=== PATIENT | female | born 1980 | race Caucasian/White ===

== ENCOUNTER 2021-03-03 16:17 | Outpatient (CLI) | payer OTHER, SELFPAY ==
--- NOTE | ~2021-03-03 | XR_ITS ---
EXAMINATION: XR chest 2V 03/03/2021 16:44 INDICATION: Shortness of breath PROCEDURE: 2 view chest COMPARISON: No prior studies for comparison. FINDINGS: The lungs are clear. The cardiomediastinal silhouette is within normal limits. There are no pleural effusions. There is no pneumothorax suspected. IMPRESSION: 1: NO ACUTE CARDIOPULMONARY DISEASE. Reviewed, dictated and finalized at location A.
== END 2021-03-03 16:18 | disposition home or self-care (01) ==
LOC: ANHIMG 16:23
PROVIDERS: PCP Emergency Medicine; Visit Provider Emergency Medicine
DX: R06.02 Shortness of breath (principal)
CPT/HCPCS: 71046

== ENCOUNTER 2021-03-05 05:55 | Emergency (ER) | payer OTHER, SELFPAY ==
--- NOTE | 2021-03-05 06:09 | ED.ABDPAIN ---
HPI - Abdominal Pain General Chief Complaint: Abdominal Pain Stated Complaint: abdominal pain Time Seen by Provider: 03/05/21 05:58 History of Present Illness HPI narrative: Patient is a 41-year-old female who presents ER with abdominal pain. Ongoing for 8 days. Sporadic in location. Intermittent in nature. Sharp when it does occur. No aggravating or alleviating factors. It is not associated with eating or drinking. There is no nausea or vomiting or diarrhea. She saw her primary care physician Dr. Byrnes. He has encouraged her several times come to the ER to be evaluated as he is unsure if she can get a CT scan outpatient due to her insurance and she is having persistent pain. Patient opted to come to the ER today in hopes that there would not be people around. Related Data Allergies Allergy/AdvReac Type Severity Reaction Status Date / Time Penicillins Allergy Mild Unverified 10/15/16 20:53 azithromycin Allergy Unknown Verified 10/15/16 20:53 Review of Systems Review of Systems: All systems reviewed & are unremarkable except as noted in HPI and below Constitutional: Constitutional: Denies chills, Denies fever(s) and Denies weakness Cardiovascular: Cardiovascular: Denies chest pain, Denies rapid heart rate and Denies radiating jaw, neck or arm pain Respiratory: Respiratory: Denies cough and Denies dyspnea Gastrointestinal: Gastrointestinal: Reports abdominal pain, Denies bloating, Denies constipation, Denies diarrhea, Denies nausea and Denies vomiting Genitourinary: Genitourinary: Denies hematuria, Denies nocturia, Denies dysuria and Denies flank pain Musculoskeletal: Musculoskeletal: Denies back pain and Denies muscle cramps PMFSH Past Medical History Medical History (Updated 03/05/21 @ 06:15 by Frankie Suarez MD) Anxiety Kidney stones Polycystic ovarian syndrome Surgical History Surgical History (Updated 03/05/21 @ 06:15 by Frankie Suarez MD) No pertinent past surgical history Social History Social History (Updated 03/05/21 @ 06:15 by Frankie Suarez MD) Smoking status: Never smoker Exam Narrative: GENERAL: Well-appearing, well-nourished, and in no acute distress. HEAD: Normocephalic, atraumatic. EYES: PERRL and EOMI. CHEST: Clear to auscultation. No respiratory distress. HEART: Regular rate and rhythm. Normal peripheral pulses. ABDOMEN: Soft, nontender, nondistended. EXTREMITIES: Normal range of motion. No edema. SKIN: Warm, dry, no rash. NEURO: Alert and oriented x3. PSYCH: Patient became very anxious about the possibility that another person could possibly share a room with her while in the ED. She became tearful. Course Course Emergency Course: Patient decided she did not want to be evaluated and walked out of the ER without signing AMA paperwork. Discharge Plan Discharge Clinical Impression: Generalized abdominal pain Patient Disposition: Left Against Medical Advice Condition: Guarded Prognosis Follow-up/Referrals: Lito Byrnes MD [Primary Care Provider] -
--- NOTE | 2021-03-05 06:17 | PC.NURSE ---
Pt ambulates out of ED without seeing provider. Gait is steady, no sign of distress of any kind.
== END 2021-03-05 06:17 | disposition left against medical advice (07) ==
PROVIDERS: Emergency Provider Emergency Medicine; PCP Emergency Medicine
DX: R10.84 Generalized abdominal pain (principal); Z87.442 Personal history of urinary calculi; E28.2 Polycystic ovarian syndrome
CPT/HCPCS: 99281

== ENCOUNTER 2025-01-01 07:31 | Outpatient (NON) | payer OTHER, SELFPAY ==
--- NOTE | 2025-01-01 | S_PTH ---
PATIENT: Bindu Rolon LOC: [facility] U#:[id number] AGE/SX: 44/F ROOM: RE01/01/[address]: Wes Rogers MD : 1980 BED: DIS: 01/01/2025 SPEC #: [id number] RECD: 01/02/25 07:43 STATUS: DEACON REQ #: [id number] ERASTO: 01/01/25 00:[address]: Wes Rogers DEPT: [facility] Surgical RECD BY: Lexy Menendez ENTERED: 01/02/25 07:44 SP TYPE: Surgical OTHR DR: UNKNOWN,DOCTOR Tissues: A - Breast Capsule Procedures: Hematoxylin and Eosin Stain Gross and Microscopic Level 3
--- OUTSIDE RECORDS SUMMARY | 2025-01-02 07:35 | XMS_ITS | Encounter Summary ---
Author Organization [facility] Address [address] [place] [address] Care Team Providers Care Global Engineering Manager Name Role Phone Carola Ashley MILLER FIRST-CHILD SUPPORT CASE OFFICER Unavailable [phone] Yolie Jauregui MILLER FIRST-CHILD SUPPORT CASE OFFICER Primary Care Provider Encounter Details Date Type Department Care Team (Late st Contact Info) Description 11/25/2024 Results Follow-Up [facility] - Family Medicine [address] [place] [phone] Yolie Jauregui MILLER FIRST-CHILD SUPPORT CASE OFFICER [address] [place] [phone] Social History Tobacco Use Types Packs/Day [...] on filedocumented in this encounter Care Teams Global Engineering Manager Relationship Specialty Start Date End Date Yolie Jauregui MILLER FIRST-RAMESH [address] [place] [phone] PCP - General Nurse Practitioner 11/06/24 Carola Ashley APRN-CHILD SUPPORT CASE OFFICER [address] [phone] Nurse Practitioner Nurse Practitioner 06/19/24 documented as of this encounter
--- OUTSIDE RECORDS SUMMARY | 2025-01-02 07:35 | XMS_ITS | Continuity of Care Document ---
Author Organization [facility] Address [address] [place] [address] Phone Care Team Providers Care Serology Technician Name Role Phone Burton Marino MD Unavailable Unavailable Allergies, Adverse Reactions, Alerts Substance Reaction Status Criticality azithromycin Active No Information Penicillins Unknown Active No Information Medications Medication Instructions Dosage Effective Dates (start - stop) Status Comments triamcinolone acetonide 0.5 % topical cream apply by topical route 2 times every day a thin layer to the affected area(s) 0.00 - Active do not use more than 2 weeks metronidazole 0.75 % topical gel apply by topical route 2 times every day a thin layer to the affected area(s) in the morning and evening 0.00 - Active Procedures Procedure Date PREV VISIT, NEW, AGE 18-39 OFFICE/OUTPATIENT VISIT, [facility] Advance Directives Directive Yes / No Effective Date File Name No Information Encounters Encounter Description Practice Location Reason(s) For Visit Diagnoses Date Provider Providers Copied on Encounter PREV VISIT, NEW, AGE 18-39 [facility], [facility] [place], [id number], tel:[phone] [facility] Physical (chief complaint) Polycystic ovarian syndromeRashEncount er for general adult medical exam w abnormal findings Ned Manrique. [address] [place], [place], [id number] , [place]. tel:[phone] Family History Family Member Type Diagnosis Age At Onset Father Problem (finding) Alive and well Mother Problem (finding) Thyroid disorder Sister Problem (finding) Alive and well Payers Payer name Insurance type Covered democrat ID Authoriza tion(s) No Information Social History [...] Mental Status Date Cognitive Assessment Orientation - Kimball ed to time, place, person, situation.
--- OUTSIDE RECORDS SUMMARY | 2025-01-02 07:36 | XMS_ITS | Clinical Summary ---
Author Organization [facility] Address [address] [place] [address] Care Team Providers Care Surveyor Helper Name Role Phone Ally Magana FELI Primary Care Provider [phone] Allergies Active Allergy Reactions Criticality Noted Date [...] VE NON-REACTI VE 11/26/2021 3:54 PM CDT [facility] 11/26/2021 12:0 5 PM CDT Ally Magana NP LABORATORY Final Result [facility] [address] [place] [address], from Last 3 Months or Most Recently Relevant to Health Maintenance Insurance [employer] Care Teams Surveyor Helper Relationship Specialty Start Date End Date [place] [address] PCP - General NURSE PRACTITIONER 11/24/21
--- OUTSIDE RECORDS SUMMARY | 2025-01-02 07:36 | XMS_ITS | Encounter Summary ---
Author Organization [facility] Address [address] [place] [address] Care Team Providers Care Marketing Teacher Name Role Phone Carola Ashley RN HOSPICE-FOREIGN LANGUAGE PROFESSOR Unavailable [phone] Yolie Jauregui RN HOSPICE-FOREIGN LANGUAGE PROFESSOR Primary Care Provider Encounter Details Date Type Department Care Team (Late st Contact Info) Description 11/25/2024 Results Follow-Up [facility] - Family Medicine [address] [place] [phone] Yolie Jauregui RN HOSPICE-FOREIGN LANGUAGE PROFESSOR [address] [place] [phone] Social History Tobacco Use Types Packs/Day [...] on filedocumented in this encounter Care Teams Marketing Teacher Relationship Specialty Start Date End Date Yolie Jauregui RN HOSPICE-RAMESH [address] [place] [phone] PCP - General Nurse Practitioner 11/06/24 Carola Ashley APRN-FOREIGN LANGUAGE PROFESSOR [address] [phone] Nurse Practitioner Nurse Practitioner 06/19/24 documented as of this encounter
--- OUTSIDE RECORDS SUMMARY | 2025-01-02 07:36 | XMS_ITS | Clinical Summary ---
Author Organization [facility] Address [address] [place] [id number] Care Team Providers Care Pet Sitting Name Role Phone Allison Hwang PA-C Primary Care Provider [phone] Allergies Active Allergy Reactions Criticality Noted Date Comments Azithromycin Hives,Itching,Nausea Only,Other/Unknown (See Comments),Palpitations Low 03/05/2021 azithromycin Iodinated Diagnostic Agents Anaphylaxis,Anxiety,Hea dache,Nausea And Vomiting,Palpitations,S hortness Of Breath 09/04/2024 Iodine Anaphylaxis High 10/11/2021 Penicillins Hives,Itching,Rash Medium 01/08/2020 Shellfish-Derived Products Anaphylaxis,Other/Unkno wn (See Comments),Hives,Itching ,Palpitations,Rash,Alyce oedema High 03/05/2021 Medications Vitamin D, Ergocalciferol, [address] UNIT capsule Take 1 capsule (50,000 Units) [...] drink = 0.6 oz pur e alcohol) [facility] Utilities Answer Date Recorded In the past 12 months has th e electric, gas, oil, or water company threatened to shut off services in your home? No 09/03/2024 PHQ-2 Answer Date Recorded Patient Health Questionnaire-2 Score 0 09/04/2024 Housing Stability Vital Sign Answer Ted e Recorded In the last 12 months, was t here a time when you were not able to pay the mortgage or rent on time? No 09/03/2024 In the past 12 months, how m any times have you moved where you were living? 0 09/03/2024 At any time in the past 12 m [facility], were you homeless or living in a skilled nursing (including now)? No 09/03/2024 Alcohol Use Answer [...] topic MENINGOCOCCAL VACCINE Aged Out No celina gooy eligible based on patient's age to complete [...] patient's age to complete this topic Insurance [facility] Care Teams Pet Sitting Relationship Specialty Start Date End Date Allison Hwang PA-C [address] [place] [address] PCP - General Physician Art Gallery Director 08/30/24
--- OUTSIDE RECORDS SUMMARY | 2025-01-02 07:36 | XMS_ITS | Clinical Summary ---
Author Organization [facility] Address [address] [place] [address] Care Team Providers Care Outbound Call Center Representative Name Role Phone Carola Ashley [employer] ADMINISTRATOR-[employer] MACHINE OPERATOR Unavailable [phone] Yolie Jauregui [employer] ADMINISTRATOR-[employer]SEMBL[employer] MACHINE OPERATOR Primary Care Provider Source Comments [facility] Affiliates and Associated Physician Practices is amultiple site organization consisting of ambulatory clinics and hospital sitesin [place], [place], [place] and [place]. This disclosure is being madepursuant to the Care Everywhere program and may not contain all information available regarding this patient. Last updated 18.[facility] Yazino Allergies Active Allergy Reactions Criticality Noted Date [...] Type Department Care Team Description 12/22/[address] [phone] Yolie Jauregui, [employer] ADMINISTRATOR-[employer] ASSEMBL[employer] MACHINE OPERATOR Refill Request 11/28/2024 Orders Only [address] [phone] Yolie Jauregui [employer] ADMINISTRATOR-RAMESH 11/28/[address] [phone] Allison Hwang PA-C Refill Request 11/25/2024 Results Follow-Up [address] [address] Yolie Jauregui [employer] ADMINISTRATOR-[employer] ASSEMBL[employer] MACHINE OPERATOR 11/25/2024 Results Follow-Up [address] [phone] Yolie Jauregui [employer] ADMINISTRATOR-[employer] ASSEMBLY MACHINE OPERATOR 11/22/2024 11:30 AM CDT Office Visit [address] [phone] Yolie Jauregui, [employer] ADMINISTRATOR-[employer]SEMBL[employer] MACHINE OPERATOR Nicole's thyroiditis (Primary Dx); Anxiety; Fatigue, unspecified type 11/20/2024 11:05 AM CDT - 11/20/2024 11:59 PM CDT Hospital Encounter [facility] Laboratory [address] [place] [address] Yolie Jauregui, [employer] ADMINISTRATOR-[employer] ASSEMBLY MACHINE OPERATOR Discharge Disposition: Home or Self Care 11/20/2024 Travel 11/06/2024 3:15 PM CDT Office Visit [facility] [address] [place] [phone] Yolie Jauregui APRN-CNP Anxiety (Primary Dx); Generalized abdominal pain; Hematuria, unspecified type 11/06/2024 Travel 10/28/2024 11:40 AM CDT - 10/28/2024 11:59 PM CDT Hospital Encounter [facility] [address] [place] [address] Allison Hwang PA-C Discharge Disposition: Home or Self Care 10/28/2024 Results Follow-Up [address] [phone] Allison Hwang PA-C 10/28/2024 Travel 10/25/2024 1:00 PM CDT Video Visit [facility], [address] [phone] Carola Ashley APRN-RAMESH Right upper quadrant abdominal tenderness without rebound tenderness ; Epigastric pain; Left lower quadrant abdominal tenderness without rebound tenderness; Nausea 10/25/2024 Orders Only [address] [phone] Allison Hwang PA-C Subjective change in urination 10/23/2024 Travel 10/03/2024 Results Follow-Up [address] [address] Allison Hwang PA-C 10/03/2024 Travel from Last 3 Months Social History Tobacco [...] mammogram LIPID PROFILE Routine 08/13/2024 10:38 AM CARE ASSOCIATE Routine health maintenance from Last 3 Months or Most Recently Relevant to Health Maintenance Results * INSULIN LEVEL FASTING (11/20/2024 11:05 AM CDT) Pathologist [facility] Insulin Fasting 7 3 - 25 uIU/mL 11/21/2024 3:45 PM CDT [facility] ([facility]) Comment: INTERPRETIVE INFORMATION: Insulin, Fasting This test reacts on a nearly equimolar basis with the analogs insulin aspart, insulin glargine, and insulin lispro. Insulin detemir exhibits approximately 50 percent cross-reactivity. Test reactivity with insulin glulisine is negligible (less than 3 percent). To convert to pmol/L, multiply uIU/mL by 6.0. Performed By: [facility] [employer] [address] [place] [address] Lotus Notes Administrator: Emmanuel Martinez MD, PhD CLIA Number: [id number] Blood BLOOD SPECIMEN / Unknown Venipuncture / Unknown 11/20/2024 11:05 AM CDT 11/20/2024 11:05 AM CDT us Yolie Jauregui [employer] ADMINISTRATOR-[employer] SHE[employer] ASSEMBLY MACHINE OPERATOR LAB - CHEMISTRY ORDERAB LES Final Result [facility] [facility]) [address] [place] [address] * (ABNORMAL) URINALYSIS REFLEX MICROSCOPIC REFLEX CULTURE (11/20/2024 11:05 AM CDT) Color UA Yellow Yellow, Straw 11/20/2024 12:29 PM CDT [facility] Clarity UA Clear Clear 11/20/2024 12:29 PM CDT [facility] Glucose UA Negative Negative 11/20/2024 12:29 PM CDT [facility] Bilirubin UA Negative Negative 11/20/2024 12:29 PM CDT [facility] Ketone UA Negative Negative 11/20/2024 12:29 PM CDT [facility] Specific Stephan UA 1.017 1.005 - 1.030 11/20/2024 12:29 PM CDT [facility] Blood UA 1+(A) Negative 11/20/2024 12:29 PM CDT [facility] pH UA 6.0 5.0 - 8.0 11/20/2024 12:29 PM CDT [facility] Protein UA Negative Negative 11/20/2024 12:29 PM CDT [facility] Urobilinogen UA Normal Normal mg/dL 025 12:29 PM CDT [facility] Nitrite UA Negative Negative 11/20/2024 12:29 PM CDT [facility] Leukocyte Esterase UA Negative Negative 11/20/2024 12:29 PM CDT [facility] RBC UA 3-5 0 - 5 # /hpf 11/20/2024 12:29 PM CDT [facility] WBC UA 0-5 0 - 5 # /hpf 11/20/2024 12:29 PM CDT [facility] Bacteria UA None Seen None Seen 11/20/2024 12:29 PM CDT [facility] Squamous Epithelial Cells 3-5 0 - 5 /hpf 11/20/2024 12:29 PM CDT [facility] Mucus UA 3+ /LPF 11/20/2024 12:29 PM CDT [facility] Urine URINE SPECIMEN OBTAINED BY CLEAN CATCH PROCEDURE / Unknown Collection / Unknown 11/20/2024 11:05 AM CDT 11/20/2024 11:05 AM CDT us Yolie Jauregui [employer] ADMINISTRATOR-[employer] ASSEMBLY MACHINE OPERATOR LAB - URINALYSIS ORDERA BLES Final Result Performing Organization Address [facility]/State/[facility] de Phone Number [facility] [address] * MTHFR MUTATION ANALYSIS (11/20/2024 11:05 AM CDT) Specimen MTHFR PCR Whole Blood 11/23 5 12:17 PM CDT [facility] ([facility]) 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 This genotype may be associated [...] has an effect on cardiovascular disease. The [place] [employer] Practice Guidelines indicate [...] a contributing factor to hyperhomocysteinemia. Variants Tested: c.665C>T(p.Zlw982Pet) and c.1286A>C(p.Chj701Gax). (legacy names C677T and V5387B, respectively). Clinical Sensitivity: Undefined; hyperhomocysteinemia is caused [...] developed and its performance characteristics determined by [employer]. It has not been cleared or approved by the [place] Food and Drug Administration. This test was performed in a CLIA certified laboratory and is intended for clinical purposes. Counseling and informed consent are recommended for genetic testing. Consent forms are available online. Performed By: [employer] [address] [place] [id number] Lotus Notes Administrator: Emmanuel Martinez MD, PhD CLIA Number: [id number] Blood BLOOD SPECIMEN / Unknown Venipuncture / Unknown 11/20/2024 11:05 AM CDT 11/20/2024 11:05 AM CDT Yolie Jauregui [employer] ADMINISTRATOR-[employer] SHE[employer] ASSEMBLY MACHINE OPERATOR LAB - CHEMISTRY ORDERAB LES Final Result Performing Organization Address [facility] Co de Phone Number [facility]) [address] [place] [address] * (ABNORMAL) THYROID AB PANEL (TPO AB+THYROGLOB AB) (11/20/2024 11:05 AM CDT) Pathologist [facility] Thyroid Peroxidase TPO Antibody <0.3 0.0 - 9.0 IU/mL 11/21/2024 6:38 PM CDT [facility] ([facility]) Thyroglobulin Antibody 12.0(H) 0.0 - 4.0 IU/mL 11/21/2024 6:38 PM CDT [facility]) Comment: INTERPRETIVE INFORMATION: Thyroglobulin Antibody A value of 4.0 IU/mL or less indicates a negative result for thyroglobulin antibodies. The Thyroglobulin Antibody assay is being performed using the Nurigene Access DxI method. Performed By: [place] [address] Lotus Notes Administrator: Emmanuel Martinez MD, PhD CLIA Number: [id number] Blood BLOOD SPECIMEN / Unknown Venipuncture / Unknown 11/20/2024 11:05 AM CDT 11/20/2024 11:05 AM CDT [facility]ie [facility] - CHEMISTRY ORDERAB LES Final Result Performing Organization Address [facility] Co de Phone Number [facility] [facility]) [address] [place] [address] * VITAMIN B1 (11/20/2024 11:05 AM CDT) [facility] Vitamin B1 Whole Blood 127 70 - 180 nmol/L 11/24/2024 12:57 PM CDT [facility] ([facility]) Comment: INTERPRETIVE INFORMATION: Vitamin B1, Whole Blood This assay measures the concentration of thiamine diphosphate (TDP), the primary active form of vitamin B1. Approximately 90 percent of vitamin B1 present in whole blood is TDP. Thiamine and thiamine monophosphate, which comprise the remaining 10 percent, are not measured. This test was developed and its performance characteristics determined by [employer]. It has not been cleared or approved by the [place] Food and Drug Administration. This test was performed in a CLIA certified laboratory and is intended for clinical purposes. Performed By: [employer] [address] [place] [address] Lotus Notes Administrator: Emmanuel Martinez MD, PhD CLIA Number: [id number] Blood BLOOD SPECIMEN / Unknown Venipuncture / Unknown 11/20/2024 11:05 AM CDT 11/20/2024 11:05 AM CDT Yolie Razia Jauregui [employer] ADMINISTRATOR-[employer] ASSEMBLY MACHINE OPERATOR LAB - CHEMISTRY ORDERAB LES Final Result Performing Organization Address City/[facility]/ZIP Co de Phone Number [employer] ([facility]) [address] [place] [address] * VITAMIN B6 (11/20/2024 11:05 AM CDT) [facility] Vitamin B6 31.3 20.0 - 125.0 nmol/L 11/23/2024 10:42 AM CDT [facility] [employer] ([facility]) Comment: INTERPRETIVE INFORMATION: Vitamin B6 (Pyridoxal 5-Phosphate) Pyridoxal 5'-phosphate measured in a specimen collected following an 8-hour or overnight fast accurately indicates vitamin B6 nutritional status. Non-fasting specimen concentration reflects recent vitamin intake. This test was developed and its performance characteristics determined by [employer]. It has not been cleared or approved by the US Food and Drug Administration. This test was performed in a CLIA certified laboratory and is intended for clinical purposes. Performed By: [employer] [address] [place] [address] Lotus Notes Administrator: Emmanuel Martinez MD, PhD CLIA Number: [id number] Blood BLOOD SPECIMEN / Unknown Venipuncture / Unknown 11/20/2024 11:05 AM CDT 11/20/2024 11:05 AM CDT us Yolie Jauregui [employer] ADMINISTRATOR-[employer] ASSEMBL[employer] MACHINE OPERATOR LAB - CHEMISTRY ORDERAB LES Final Result Performing Organization Address City/[facility]/ZIP Co de Phone Number [facility] [employer] ([facility]) [address] [place] [address] * T3 FREE (11/20/2024 11:05 AM CDT) Pathologist [facility] T3 Free 3.4 2.5 - 4.3 pg/mL 11/24/2024 2:33 AM CDT [facility] ([facility]) Comment: REFERENCE INTERVAL: Triiodothyronine, Free (Free T3) Access complete set of age- and/or gender-specific reference intervals for this test in the [facility] Laboratory Test Directory ([facility]). Performed By: [facility] [employer] [address] [place] [address] Lotus Notes Administrator: Emmanuel Martinez MD, PhD CLIA Number: [id number] Blood BLOOD SPECIMEN / Unknown Lab Venipuncture / Unknown 11/20/2024 11:05 AM CDT 11/22/2024 12:01 PM CDT us Yolie Jauregui [employer] ADMINISTRATOR-SHOT[employer] SHELL ASSEMBLY MACHINE OPERATOR LAB - CHEMISTRY ORDERAB LES Final Result Performing Organization Address [facility] Co de Phone Number [facility]) [address] [place] [address] * (ABNORMAL) VITAMIN D 25-HYDROXY (PERFORMED IN HOUSE) (11/20/2024 11:05 AM CDT) Vitamin D, 25 Hydroxy 18.1(L) 30 - 80 ng/mL 11/20/2024 1:13 PM CDT [facility] Blood BLOOD SPECIMEN / Unknown Venipuncture / Unknown 11/20/2024 11:05 AM CDT 11/20/2024 11:05 AM CDT Narrative [facility] - 11/20/2024 1:13 PM CDT Reference [...] LC-MS/MS be performed to confirm the result. us Yolie Jauregui APRN-[employer]SEMBL[employer] MACHINE OPERATOR LAB - CHEMISTRY ORDERAB LES Final Result [facility] [address] * TSH (11/20/2024 11:05 AM CDT) TSH 1.0826 0.35 - 4.94 uIU/mL 11/22/2024 1:32 PM CDT [facility] Blood BLOOD SPECIMEN / Unknown Lab Venipuncture / Unknown 11/20/2024 11:05 AM CDT 11/22/2024 12:01 PM CDT us Yolie E Foster [employer] ADMINISTRATOR-SH[employer] SHE[employer] ASSEMBLY MACHINE OPERATOR LAB - CHEMISTRY ORDERAB LES Final Result Performing Organization Address [facility]/ZIP Co de Phone Number [facility] [address] [place] [address] * T4 FREE (11/20/2024 11:05 AM CDT) Pathologist [facility] T4 Free 1.08 0.70 - 1.48 ng/dL 11/22/2024 1:32 PM CDT [facility] Blood BLOOD SPECIMEN / Unknown Lab Venipuncture / Unknown 11/20/2024 11:05 AM CDT 11/22/2024 12:01 PM CDT Yolie E Foster [employer] ADMINISTRATOR-SHOT[employer] SHELL ASSEMBLY MACHINE OPERATOR LAB - CHEMISTRY ORDERAB LES Final Result Performing Organization Address City/[facility]/ZIP Co de Phone Number [facility] [address] [place] [address] * (ABNORMAL) URINALYSIS AUTO - POINT OF CARE (AMB) [facility] (10/28/2024 11:44 AM CDT) Clarity UA POCT CLOUDY [facility] Color UA POCT YELLOW [facility] Glucose UA Negative Negative [facility] Bilirubin UA POCT Negative Negative [facility] Ketone UA Negative Negative [facility] Specific Stephan UA POCT 1.025 1.002 - 1.030 [facility] Blood UA POCT Trace-Lysed( A) Negative [facility] pH UA 6.5 5.0 - 8.0 pH units [facility] Protein UA POCT Negative Negative [facility] Urobilinogen UA 0.2 0.1 - 1.0 [facility] Nitrite UA POCT Negative Negative [facility] Leukocyte UA Negative Negative [facility] QC Verified Yes Yes [facility] Urine URINE / Unknown 10/28/2024 1 1:44 AM CDT Allison Hwang PA-C LAB - POINT OF CARE ORDERABLES Final Result [facility] [address] [place] [address], [facility] [phone] * CULTURE URINE (10/28/2024 11:40 AM CDT) Culture Urine <10,000 CFU/mL urogenital kate RHIANNON 10/29/2024 11:49 PM CDT [facility] Urine URINE SPECIMEN OBTAINED BY CLEAN CATCH PROCEDURE / Unknown Collection / Unknown 10/28/2024 11:40 AM CDT 10/28/2024 11:40 AM CDT Allison Hwang PA-C LAB - MICROBIOLOGY ORDERABLES Final Result [facility] [address] [place] [address], [facility] [phone] * Mammo Bilat Implant Screen W Seth [...] JR, MD on 10/03/2024 10:19 AM Allison Hwang PA-C MAMMO ORDERABLES Final Result * LIPID PROFILE (08/13/2024 10:38 AM [facility]) Cholesterol 162 <200 mg/dL 08/13/2024 1:[address] [facility] Triglycerides 41 <150 mg/dL 08/13/2024 1:[address] [facility] HDL Cholesterol 73 >40 mg/dL 1:[address] [facility] Chol HDL Ratio 2.2 1.0 - 6.0 08/13/2024 1:[address] [facility] LDL Calculated 81 65 - 130 mg/dL 08/13/2024 1:[address] [facility] VLDL Calculated 8 <=30 mg/dL 1:[address] [facility] Blood BLOOD SPECIMEN / Unknown Venipuncture / Unknown 08/13/2024 10:38 AM [facility] 08/13/2024 10:38 AM [facility] - 08/13/2024 1:05 PM [facility] Lipid Profile Comment: CHOLESTEROL [...] ORDERABLES Fin al Result Performing Organization Address City/State/[facility] Co de Phone Number [facility] [address] [facility]. [address] from Last 3 Months or Most Recently Relevant to Health Maintenance Insurance [facility] Care Teams Outbound Call Center Representative Relationship Specialty Start Date End Date Yolie Jauregui APRN-RAMESH [address] [place] [phone] PCP - General Nurse Practitioner 11/06/24 Carola Ashley APRN-CNP [address] [phone] Nurse Practitioner Nurse Practitioner 06/19/24
== END 2025-01-01 07:32 | disposition home or self-care (01) ==
LOC: ANHLAB 01-02 07:34
PROVIDERS: Visit Provider Surgery Plastic and Reconstructive Surgery
DX: Z98.82 Breast implant status (principal)
CPT/HCPCS: 88304

== ENCOUNTER 2025-01-01 07:53 | Day surgery (SDC) | payer OTHER, SELFPAY ==
[2024-12-23 14:58] VITALS: BMI 22.8
[2025-01-01] VITALS (8 sets, daily range): BP systolic 107–134; BP diastolic 62–80; PULSE 108–131; RESP 16–21; TEMP 36.3–36.9; O2SAT 99–100; BMI 22.6
--- OUTSIDE RECORDS SUMMARY | 2025-01-01 08:03 | XMS_ITS | Encounter Summary ---
Author Organization [facility] Address [address] [place] [address] Care Team Providers Care Catechist Name Role Phone Carola Ashley SURGICAL FIRST ASSISTANT-ASSISTANT TODDLER TEACHER Unavailable [phone] Yolie Jauregui SURGICAL FIRST ASSISTANT-ASSISTANT TODDLER TEACHER Primary Care Provider Encounter Details Date Type Department Care Team (Late st Contact Info) Description 11/25/2024 Results Follow-Up [facility] - Family Medicine [address] [place] [phone] Yolie Jauregui SURGICAL FIRST ASSISTANT-ASSISTANT TODDLER TEACHER [address] [place] [phone] Social History Tobacco Use Types Packs/Day Years Used Date Smoking Tobacco: Never Smokeless Tobacco: Never Alcohol Use Standard Drinks/Week Comments Not Currently 0 (1 standard drink = 0.6 oz pur e alcohol) PHQ-2 Answer Date Recorded Patient Health Questionnaire-2 Score 0 11/22/2024 Comments No Sex and Gender Information Value Date Recorded Sex Assigned at Not on file Legal Sex Female 12:16 PM CDT Gender Identity Not on file Sexual Orientation Straight 04/13/2023 4: 49 PM CDT documented as of this encounter Plan of Treatment Not on file documented as of this encounter Visit Diagnoses Not on filedocumented in this encounter Care Teams Catechist Relationship Specialty Start Date End Date Yolie Jauregui SURGICAL FIRST ASSISTANT-RAMESH [address] [place] [phone] PCP - General Nurse Practitioner 11/06/24 Carola Ashley APRN-ASSISTANT TODDLER TEACHER [address] [phone] Nurse Practitioner Nurse Practitioner 06/19/24 documented as of this encounter
--- OUTSIDE RECORDS SUMMARY | 2025-01-01 08:04 | XMS_ITS | Clinical Summary ---
Author Organization [facility] Address [address] [place] [address] Care Team Providers Care Slasher Machine Operator Name Role Phone Ally Magana FELI Primary Care Provider [phone] Allergies Active Allergy Reactions Criticality Noted Date Comments Azithromycin Palpitations Low 03/05/2021 Iodine Anaphylaxis High 10/11/2021 Penicillins Hives 01/08/2020 Shellfish Allergy Anaphylaxis,Chest pressure,Rash,Swelling High 10/11/2021 Shellfish-Derived Products Palpitations Low 021 Medications hyoscyamine (LEVSIN) 0.125 MG tabletIndicatio ns:Right upper quadrant abdominal pain Take 1 tablet (0.125 mg total) by mouth every 4 (four) hours as needed for Cramping. 40 tablet 1 2 Active ondansetron (ZOFRAN) 4 MG tabletIndicatio ns:Nausea Take 1 tablet (4 mg total) by mouth every 8 (eight) hours as needed for Nausea. 20 tablet 2 Active Additional Information Patient not taking.Reported on 07/06/2022 hydrOXYzine (ATARAX) 25 MG tabletIndicatio ns:Seasonal allergies Take 1 tablet (25 mg total) by mouth 3 (three) times daily as needed for Itching. 60 tablet 3 Active vitamin D2, ergocalciferol, (DRISDOL) 1.25 mg capsuleIndicati ons:Vitamin D deficiency TAKE 1 CAPSULE BY MOUTH 1 TIME A WEEK 12 capsule 3 Active Active Problems Problem Noted Date Diagnosed Date Kidney stone 03/01/2022 Umbilical hernia without obstruction or gangrene 10/11/2021 Family History Medical History Relation Comments Diabetes Father Hypertension Father Rheumatoid Arthritis Mother Thyroid Mother Relation Status Comments Father Alive Mother Alive Social History Tobacco Use Types Packs/Day Years Used Date Smoking Tobacco: Never Smokeless Tobacco: Never Tobacco Cessation:Counseling Given: Not Answered Alcohol Use Standard Drinks/Week Comments Not Currently 0 (1 standard drink = 0.6 oz pur e alcohol) PHQ-2 Answer Date Recorded PHQ-2 Score - If the patient scores above 3, please move on to questions 3-9 0 11/25/2021 Comments No Sex and Gender Information Value Date Recorded Sex Assigned at Not on file Legal Sex Female 8:58 AM CDT Gender Identity Not on file Sexual Orientation Not on file Last Filed Vital Signs Vital Sign Reading Time Taken Comments Blood Pressure 120/70 03/04/2022 12:38 PM CDT Pulse 90 03/04/2022 12:38 PM CDT Temperature 36.2 C (97.2 F) 03/04/2022 12:38 PM CDT Respiratory Rate 18 03/04/2022 12:38 PM CDT Oxygen Saturation 99% 03/04/2022 12:38 PM CDT Inhaled Oxygen Concentration - - Weight 64 kg (141 lb) 03/04/2022 12:38 PM CDT Height 154.9 cm (5' 1) 03/04/2022 12:38 PM CDT Body Mass Index 26.64 03/04/2022 12:38 PM CDT Plan of Treatment Health Maintenance Due Date Last Done Comments Annual Physical 1985 DTaP, Tdap and Td Vaccines ( 1 - Tdap) 2001 Hepatitis B Vaccines (1 of 3 - 19+ 3-dose series) 2001 HPV Vaccines (1 - 3-dose SCD M series) 2009 Cervical Cancer Screening Pa p with HPV Testing (Age 30 to 64) Every 5 Years 2012 Mammogram Screening 2022 COVID-19 Vaccine ( - 2023-2 5 season) 2024 Cervical Cancer Screening Pa p Smear (Age 30 to 64) Every 3 Years 09/16/2024 09/16/2021 Cervical Cancer Screening with HPV 09/16/2024 Hepatitis C Completed 11/26/2021 Meningococcal B Vaccine Aged Out No l onger eligible based on patient's age to complete this topic Meningococcal Vaccine Aged Out No celina goyo eligible based on patient's age to complete this topic Pneumococcal Vaccine: Pediat rics (0 to 5 Years) and At-Risk Patients (6 to 49 Years) Aged Out No longer eligi ble based on patient's age to complete this topic RSV Immunizations Under 20 Months Aged Out No longer eligible based on patient's age to complete this topic Procedures Procedure Name Priority Date/Time Associated Diagnosis Comments HEPATITIS C ANTIBODY Routine 11/26/2021 12:05 PM CDT RUQ pain Encounter for hepatitis C screening test for low risk patient from Last 3 Months or Most Recently Relevant to Health Maintenance Results * HEPATITIS C ANTIBODY (11/26/2021 12:05 PM CDT) HEPATITIS C AB NON-REACTI VE NON-REACTI VE 11/26/2021 3:54 PM CDT [facility] 11/26/2021 12:0 5 PM CDT Ally Magana NP LABORATORY Final Result [facility] [address] [place] [address], from Last 3 Months or Most Recently Relevant to Health Maintenance Insurance [employer] Care Teams Slasher Machine Operator Relationship Specialty Start Date End Date Al[place] [address] PCP - General NURSE PRACTITIONER 11/24/21
--- OUTSIDE RECORDS SUMMARY | 2025-01-01 08:04 | XMS_ITS | Clinical Summary ---
Author Organization [facility] Address [address] [place] [address] Care Team Providers Care Biometric Fingerprinting Technician Name Role Phone Carola Ashley LAB SUPPORT SERVICE TECH-SENIOR ACCOUNTING ANALYST Unavailable [phone] Yolie Jauregui LAB SUPPORT SERVICE TECH-SENIOR ACCOUNTING ANALYST Primary Care Provider Source Comments [facility],non-[facility] Affiliates and Associated Physician Practices is amultiple site organization consisting of ambulatory clinics and hospital sitesin [place], [place], [place] and [place]. This disclosure is being madepursuant to the Care Everywhere program and may not contain all information available regarding this patient. Last updated 18.[facility] Allergies Active Allergy Reactions Criticality Noted Date Comments Penicillins Rash Medium 05/31/2024 Shellfish Allergy Anaphylaxis High 05/31/2024 Azithromycin Palpitations 05/31/2024 Medications * Be aware that medications may not be up to date on this document. Alwaysverify current medications with the patient. hydrOXYzine HCl (Atarax) 25 MG tablet 3 Active ondansetron, disintegrating, (Zofran ODT) 4 MG tabletIndicatio ns:Nausea and Vomiting Take 1 (one) tablet by mouth every 6 hours as needed for Nausea/Vomiting Allow tablet to dissolve on the tongue Reasons: Nausea and Vomiting 30 tablet 1 5 Active Additional Information Patient not taking.Reason: Provider adjusted, Reported on 11/22/2024 ondansetron (Zofran) 4 MG tablet Take 1 (one) tablet by mouth every 6 hours as needed for Nausea/Vomiting Active pantoprazole EC (Protonix) 20 MG tablet Take 1 (one) tablet by mouth once daily 30 tablet Active Active Problems Problem Noted Date Diagnosed Date PCOS (polycystic ovarian syndrome) 07/18/2024 Severe anxiety 07/18/2024 Kidney stone 03/01/2022 Umbilical hernia without obstruction or gangrene 10/11/2021 Encounters Date Type Department Care Team Description 12/22/[address] [phone] Yolie Jauregui, LAB SUPPORT SERVICE TECH-SENIOR ACCOUNTING ANALYST Refill Request 11/28/2024 Orders Only [address] [phone] Yolie Jauregui LAB SUPPORT SERVICE TECH-RAMESH 11/28/[address] [phone] Allison Hwang PA-C Refill Request 11/25/2024 Results Follow-Up [address] [phone] Yolie Jauregui LAB SUPPORT SERVICE TECH-SENIOR ACCOUNTING ANALYST 11/25/2024 Results Follow-Up [address] [phone] Yolie Jauregui LAB SUPPORT SERVICE TECH-SENIOR ACCOUNTING ANALYST 11/22/2024 11:30 AM CDT Office Visit [address] [phone] Yolie Jauregui, LAB SUPPORT SERVICE TECH-SENIOR ACCOUNTING ANALYST Nicole's thyroiditis (Primary Dx); Anxiety; Fatigue, unspecified type 11/20/2024 11:05 AM CDT - 11/20/2024 11:59 PM CDT Hospital Encounter [facility] - Laboratory [address] [place] [phone] Yolie Jauregui, LAB SUPPORT SERVICE TECH-SENIOR ACCOUNTING ANALYST Discharge Disposition: Home or Self Care 11/20/2024 Travel 11/06/2024 3:15 PM CDT Office Visit [facility] [address] [place] [phone] Yolie Jauregui APRN-CNP Anxiety (Primary Dx); Generalized abdominal pain; Hematuria, unspecified type 11/06/2024 Travel 10/28/2024 11:40 AM CDT - 10/28/2024 11:59 PM CDT Hospital Encounter [facility] - Laboratory [address] [place] [phone] Allison Hwang PA-C Discharge Disposition: Home or Self Care 10/28/2024 Results Follow-Up [address] [phone] Allison Hwang PA-C 10/28/2024 Travel 10/25/2024 1:00 PM CDT Video Visit [facility] - [address], [address] [phone] Carola Ashley APRN-CNP Right upper quadrant abdominal tenderness without rebound tenderness ; Epigastric pain; Left lower quadrant abdominal tenderness without rebound tenderness; Nausea 10/25/2024 Orders Only [address] [phone] Allison Hwang PA-C Subjective change in urination 10/23/2024 Travel 10/03/2024 Results Follow-Up [address] [phone] Allison Hwang PA-C 10/03/2024 Travel 10/02/2024 2:58 PM CDT - 10/02/2024 11:59 PM CDT Hospital Encounter [address] [phone] Allison Hwang PA-C Discharge Disposition: Home or Self Care from Last 3 Months Social History Tobacco Use Types Packs/Day Years [...] Orientation Straight 04/13/2023 4: 49 PM CDT Last Filed Vital Signs Vital Sign Reading Time Taken Comments Blood Pressure 108/62 11/22/2024 11:29 AM CDT Pulse 87 11/22/2024 11:29 AM CDT Temperature 36.8 C (98.3 F) 11/22/2024 11:29 AM CDT Respiratory Rate 16 11/22/2024 11:29 AM CDT Oxygen Saturation 99% 11/22/2024 11:29 AM CDT Inhaled Oxygen Concentration - - Weight 57.2 kg (126 lb) 11/22/2024 11:29 AM CDT Height 161.3 cm (5' 3.5) 11/22/2024 11:29 AM CD T Body Mass Index 21.97 11/22/2024 11:29 AM CDT Plan of Treatment Health Maintenance Due Date Last Done Comments HIV SCREENING 1997 DTAP/TDAP/TD VACCINES (1 - Tdap) 2001 HEPATITIS B VACCINE (1 of 3 - 19+ 3-dose series) 2001 HPV VACCINE (1 - 3-dose SCDM series) 2009 COVID-19 VACCINE (1 - 2023-2 5 season) 2024 PAP SMEAR 09/16/2024 09/16/2021, 09/16/2021 INFLUENZA VACCINE (#1) 2025 MAMMOGRAM 10/02/2026 10/02/2024 LIPID TESTING 08/13/2029 08/13/2024 ZOSTER VACCINE (1 of 2) 2032 HEPATITIS C SCREENING Completed 11/26/2021 DEPRESSION SCREENING Completed 07/18/2024 HIB VACCINE Aged Out No longer eligi ble based on patient's age to complete this topic MENINGOCOCCAL (Group B) VACCINE SHARED DECISION-MAKING Aged Out No longer eligible based on patient's age to complete this topic MENINGOCOCCAL GROUPS A/C/Y/W VACCINE Aged Out No longer eligible b ased on patient's age to complete this topic PNEUMOCOCCAL VACCINE Aged Out No long er eligible based on patient's age to complete this topic Procedures Procedure Name Priority Date/Time Associated Diagnosis Comments TSH Routine 11/20/2024 11:05 AM CDT Nicole's thyroiditis T4 FREE Routine 11/20/2024 11:05 AM CDT Nicole's thyroiditis T3 FREE Routine 11/20/2024 11:05 AM CDT Nicole's thyroiditis VITAMIN B1 Routine 11/20/2024 11:05 AM CDT Anxiety VITAMIN B6 Routine 11/20/2024 11:05 AM CDT Anxiety INSULIN LEVEL FASTING Routine 11/20/2024 11:05 AM CDT Anxiety THYROID AB PANEL (TPO AB+THYROGLOB AB) Routine 11/20/2024 11:05 AM CDT Anxiety VITAMIN D 25-HYDROXY Routine 11/20/2024 11:05 AM CDT Anxiety MTHFR MUTATION ANALYSIS Routine 11/20/2024 11:05 AM CDT Anxiety URINALYSIS REFLEX MICROSCOPIC REFLEX CULTURE Routine 11/20/2024 11:05 AM CDT Hematuria, unspecified type URINALYSIS AUTO - POINT OF CARE (AMB) SMGS Routine 10/28/2024 11:44 AM CDT Subjective change in urination CULTURE URINE Routine 10/28/2024 11:40 AM CDT Subjective change in urination MAMMO BILAT IMPLANT SCREEN W SETH Routine 10/02/2024 3:20 PM CDT Visit for screening mammogram LIPID PROFILE Routine 08/13/2024 10:38 AM [employer] Routine health maintenance from Last 3 Months or Most Recently Relevant to Health Maintenance Results * INSULIN LEVEL FASTING (11/20/2024 11:05 AM CDT) Insulin Fasting 7 3 - 25 uIU/mL 11/21/2024 3:45 PM CDT [facility] ([facility]) Comment: INTERPRETIVE INFORMATION: Insulin, Fasting This test reacts on a nearly equimolar basis with the analogs insulin aspart, insulin glargine, and insulin lispro. Insulin detemir exhibits approximately 50 percent cross-reactivity. Test reactivity with insulin glulisine is negligible (less than 3 percent). To convert to pmol/L, multiply uIU/mL by 6.0. Performed By: [facility] [address] [place] [address] Physicist [place]: Emmanuel Martinez MD, PhD CLIA Number: [id number] Blood BLOOD SPECIMEN / Unknown Venipuncture / Unknown 11/20/2024 11:05 AM CDT 11/20/2024 11:05 AM CDT us Yolie E Juventino LAB SUPPORT SERVICE TECH-SENIOR ACCOUNTING ANALYST LAB - CHEMISTRY ORDERAB LES Final Result [facility] [employer] [facility]) [address] [place] [address] * (ABNORMAL) URINALYSIS REFLEX MICROSCOPIC REFLEX CULTURE (11/20/2024 11:05 AM CDT) Color UA Yellow Yellow, Straw 11/20/2024 12:29 PM CDT [facility] Clarity UA Clear Clear 11/20/2024 12:29 PM CDT [facility] Glucose UA Negative Negative 11/20/2024 12:29 PM CDT [facility] Bilirubin UA Negative Negative 11/20/2024 12:29 PM CDT [facility] Ketone UA Negative Negative 11/20/2024 12:29 PM CDT [facility] Specific [place] UA 1.017 1.005 - 1.030 11/20/2024 12:29 PM CDT [facility] Blood UA 1+(A) Negative 11/20/2024 12:29 PM CDT [facility] pH UA 6.0 5.0 - 8.0 11/20/2024 12:29 PM CDT [facility] Protein UA Negative Negative 11/20/2024 12:29 PM CDT [facility] Urobilinogen UA Normal Normal mg/dL 025 12:29 PM CDT [facility] Nitrite UA Negative Negative 11/20/2024 12:29 PM CDT [facility] Leukocyte Esterase UA Negative Negative 11/20/2024 12:29 PM CDT [facility] RBC UA 3-5 0 - 5 # /hpf 11/20/2024 12:29 PM CDT [facility] WBC UA 0-5 0 - 5 # /hpf 11/20/2024 12:29 PM CDT [facility] Bacteria UA None Seen None Seen 11/20/2024 12:29 PM CDT [facility] Squamous Epithelial Cells 3-5 0 - 5 /hpf 11/20/2024 12:29 PM CDT [facility] Mucus UA 3+ /LPF 11/20/2024 12:29 PM CDT [facility] Urine URINE SPECIMEN OBTAINED BY CLEAN CATCH PROCEDURE / Unknown Collection / Unknown 11/20/2024 11:05 AM CDT 11/20/2024 11:05 AM CDT us Yolie Jauregui LAB SUPPORT SERVICE TECH-SENIOR ACCOUNTING ANALYST LAB - URINALYSIS ORDERA BLES Final Result Performing Organization Address [facility]/State/[facility] Co de Phone Number [facility] [address] * MTHFR MUTATION ANALYSIS (11/20/2024 11:05 AM CDT) Specimen MTHFR PCR Whole Blood 11/23 12:17 PM CDT [facility]) 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 This genotype may be associated with a mild, but clinically insignificant, decrease in MTHFR enzyme activity. This result has been reviewed and approved by Irina Escalona M.D., Ph.D. Background Information: Methylenetetrahydrofolate Reductase (MTHFR) 2 Variants Characteristics: Variants in the MTHFR gene may reduce enzyme activity contributing to hyperhomocysteinemia. Although hyperhomocysteinemia was previously reported to be a risk factor for many conditions, especially venous thrombosis and cardiovascular disease, recent meta-analysis casts doubt on whether lifelong moderate homocysteine elevation has an effect on cardiovascular disease. The [place] Practice Guidelines indicate that individuals with elevated homocysteine and two copies of the c.665C>T variant have an odds ratio of 1.27 for venous thromboembolism. Thus, they recommend MTHFR genotyping not be ordered as part of a routine evaluation for recurrent loss or thromobophilia due to questionable clinical significance. Incidence: The allele frequency of the c.665C>T variant is 0.35 in Caucasians, 0.5 in Hispanics, and 0.12 in Americans. Inheritance: Autosomal recessive; two copies of the c.665C>T variant may be a contributing factor to hyperhomocysteinemia. Variants Tested: c.665C>T(p.[id number]) and c.1286A>C(p.[id number]). (legacy names C677T and [id number], respectively). Clinical Sensitivity: Undefined; hyperhomocysteinemia is caused by genetic, physiologic and environmental factors. MTHFR variants are only one contributing factor. Methodology: Polymerase chain reaction (PCR) and fluorescence monitoring. Analytical Sensitivity and Specificity: 99 percent. Limitations: Only two MTHFR gene variants (c.665C>T and c.1286A>C) are tested. Diagnostic errors can occur due to rare sequence variations. This test was developed and its performance characteristics determined by [facility]. It has not been cleared or approved by the [place] Food and Drug Administration. This test was performed in a CLIA certified laboratory and is intended for clinical purposes. Counseling and informed consent are recommended for genetic testing. Consent forms are available online. Performed By: [facility] [address] [place] [id number] Physicist [place]: Emmanuel Martinez MD, PhD CLIA Number: [id number] Blood BLOOD SPECIMEN / Unknown Venipuncture / Unknown 11/20/2024 11:05 AM CDT 11/20/2024 11:05 AM CDT Yolie Razia Juventino LAB SUPPORT SERVICE TECH-[facility] LAB - CHEMISTRY ORDERAB LES Final Result Performing Organization Address [facility] Co de Phone Number [facility] [employer] ([facility]) [address] [place] [address] * (ABNORMAL) THYROID AB PANEL (TPO AB+THYROGLOB AB) (11/20/2024 11:05 AM CDT) Pathologist [facility] Thyroid Peroxidase TPO Antibody <0.3 0.0 - 9.0 IU/mL 11/21/2024 6:38 PM CDT [facility] [employer] ([facility]) Thyroglobulin Antibody 12.0(H) 0.0 - 4.0 IU/mL 11/21/2024 6:38 PM CDT [facility] [employer] ([facility]) Comment: INTERPRETIVE INFORMATION: Thyroglobulin Antibody A value of 4.0 IU/mL or less indicates a negative result for thyroglobulin antibodies. The Thyroglobulin Antibody assay is being performed using the [employer] DxI method. Performed By: [facility] [address] [place] [address] Physicist [place]: Emmanuel Martinez MD, PhD CLIA Number: [id number] Blood BLOOD SPECIMEN / Unknown Venipuncture / Unknown 11/20/2024 11:05 AM CDT 11/20/2024 11:05 AM CDT Yolie Jauregui LAB SUPPORT SERVICE [facility] LAB - CHEMISTRY ORDERAB LES Final Result Performing Organization Address City/[facility]/ZIP Co de Phone Number [facility] [employer] ([facility]) [address] [place] [address] * VITAMIN B1 (11/20/2024 11:05 AM CDT) Pathologist [facility] Vitamin B1 Whole Blood 127 70 - 180 nmol/L 11/24/2024 12:57 PM CDT [facility] [employer] ([facility]) Comment: INTERPRETIVE INFORMATION: Vitamin B1, Whole Blood This assay measures the concentration of thiamine diphosphate (TDP), the primary active form of vitamin B1. Approximately 90 percent of vitamin B1 present in whole blood is TDP. Thiamine and thiamine monophosphate, which comprise the remaining 10 percent, are not measured. This test was developed and its performance characteristics determined by [facility]. It has not been cleared or approved by the [place] Food and Drug Administration. This test was performed in a CLIA certified laboratory and is intended for clinical purposes. Performed By: [facility] [employer] [address] [place] [address] Physicist [place]: Emmanuel Martinez MD, PhD CLIA Number: [id number] Blood BLOOD SPECIMEN / Unknown Venipuncture / Unknown 11/20/2024 11:05 AM CDT 11/20/2024 11:05 AM CDT Yolie Jauregui LAB SUPPORT SERVICE TECH-SENIOR ACCOUNTING ANALYST LAB - CHEMISTRY ORDERAB LES Final Result Performing Organization Address [facility] Co de Phone Number [facility]) [address] [place] [address] * VITAMIN B6 (11/20/2024 11:05 AM CDT) [facility] Vitamin B6 31.3 20.0 - 125.0 nmol/L 11/23/2024 10:42 AM CDT [facility] ([facility]) Comment: INTERPRETIVE INFORMATION: Vitamin B6 (Pyridoxal 5-Phosphate) Pyridoxal 5'-phosphate measured in a specimen collected following an 8-hour or overnight fast accurately indicates vitamin B6 nutritional status. Non-fasting specimen concentration reflects recent vitamin intake. This test was developed and its performance characteristics determined by [facility]. It has not been cleared or approved by the US Food and Drug Administration. This test was performed in a CLIA certified laboratory and is intended for clinical purposes. Performed By: [facility] [address] [place] [address] Physicist [place]: Emmanuel Martinez MD, PhD CLIA Number: [id number] Blood BLOOD SPECIMEN / Unknown Venipuncture / Unknown 11/20/2024 11:05 AM CDT 11/20/2024 11:05 AM CDT us Yolie Jauregui LAB SUPPORT SERVICE TECH-SENIOR ACCOUNTING ANALYST LAB - CHEMISTRY ORDERAB LES Final Result [facility] [address] * T3 FREE (11/20/2024 11:05 AM CDT) T3 Free 3.4 2.5 - 4.3 pg/mL 11/24/2024 2:33 AM CDT [facility] [employer] ([facility]) Comment: REFERENCE INTERVAL: Triiodothyronine, Free (Free T3) Access complete set of age- and/or gender-specific reference intervals for this test in the [facility] Test Directory ([employer]). Performed By: [facility] [address] [place] [address] Physicist [place]: Emmanuel Martinez MD, PhD CLIA Number: [id number] Blood BLOOD SPECIMEN / Unknown Lab Venipuncture / Unknown 11/20/2024 11:05 AM CDT 11/22/2024 12:01 PM CDT Yolie Jauregui LAB SUPPORT SERVICE TECH-SENIOR ACCOUNTING ANALYST LAB - CHEMISTRY ORDERAB LES Final Result Performing Organization Address City/[facility] Co de Phone Number [facility] [address] [place] [address] * (ABNORMAL) VITAMIN D 25-HYDROXY (PERFORMED IN HOUSE) (11/20/2024 11:05 AM CDT) Vitamin D, 25 Hydroxy 18.1(L) 30 - 80 ng/mL 11/20/2024 1:13 PM CDT [facility] Blood BLOOD SPECIMEN / Unknown Venipuncture / Unknown 11/20/2024 11:05 AM CDT 11/20/2024 11:05 AM CDT Narrative [facility] - 11/20/2024 1:13 PM CDT Reference Values: The recommendation for 25-Hydroxy Vitamin D clinical decision points are as follows: Deficient < 20.0 ng/mL Insufficient 20.0-29.9 ng/mL Sufficient 30.0-100.0 ng/mL Potential Toxicity >100 ng/mL Reference: The Endocrine Society Clinical Practice Guidelines. 2011 If the 25-Hydroxy Vitamin D results are inconsistent with clinical evidence, it is recommended that follow-up testing using a method such as LC-MS/MS be performed to confirm the result. Yolie E Juventino LAB SUPPORT SERVICE TECH-SENIOR ACCOUNTING ANALYST LAB - CHEMISTRY ORDERAB LES Final Result Performing Organization Address [facility] Co de Phone Number [facility] [address] * TSH (11/20/2024 11:05 AM CDT) Pathologist [facility] TSH 1.0826 0.35 - 4.94 uIU/mL 11/22/2024 1:32 PM CDT [facility] Blood BLOOD SPECIMEN / Unknown Lab Venipuncture / Unknown 11/20/2024 11:05 AM CDT 11/22/2024 12:01 PM CDT Yolie E Juventino LAB SUPPORT SERVICE TECH-[facility] LAB - CHEMISTRY ORDERAB LES Final Result Performing Organization Address [facility] Co de Phone Number [facility] [address] [place] [address] * T4 FREE (11/20/2024 11:05 AM CDT) Pathologist [facility] T4 Free 1.08 0.70 - 1.48 ng/dL 11/22/2024 1:32 PM CDT [facility] Blood BLOOD SPECIMEN / Unknown Lab Venipuncture / Unknown 11/20/2024 11:05 AM CDT 11/22/2024 12:01 PM CDT Yolie E Juventino LAB SUPPORT SERVICE TECH-[facility] LAB - CHEMISTRY ORDERAB LES Final Result Performing Organization Address [facility] Co de Phone Number [facility] [address] [place] [address] * (ABNORMAL) URINALYSIS AUTO - POINT OF CARE (AMB) [facility] (10/28/2024 11:44 AM CDT) Pathologist [facility] Clarity UA POCT CLOUDY [facility] Color UA POCT YELLOW [facility] Glucose UA Negative Negative [facility] Bilirubin UA POCT Negative Negative [facility] Ketone UA Negative Negative [facility] Specific [place] UA POCT 1.025 1.002 - 1.030 [facility] Blood UA POCT Trace-Lysed( A) Negative [facility] pH UA 6.5 5.0 - 8.0 pH units [facility] Protein UA POCT Negative Negative [facility] Urobilinogen UA 0.2 0.1 - 1.0 [facility] Nitrite UA POCT Negative Negative [facility] Leukocyte UA Negative Negative [facility] QC Verified Yes Yes [facility] Urine URINE / Unknown 10/28/2024 1 1:44 AM CDT Allison Hwang PA-C LAB - POINT OF CARE ORDERABLES Final Result Performing Organization Address City/[facility] Co de Phone Number [facility] [address] [place], [place] [address] [phone] * CULTURE URINE (10/28/2024 11:40 AM CDT) Culture Urine <10,000 CFU/mL urogenital kate RHIANNON 10/29/2024 11:49 PM CDT [facility] Urine URINE SPECIMEN OBTAINED BY CLEAN CATCH PROCEDURE / Unknown Collection / Unknown 10/28/2024 11:40 AM CDT 10/28/2024 11:40 AM CDT Allison Hwang PA-C LAB - MICROBIOLOGY ORDERABLES Final Result [facility] [address] [place] [address], [facility] [phone] * Mammo Bilat Implant Screen W Seth (10/02/2024 3:20 PM CDT) Anatomical Region Laterality Modality Breast Bilateral Mammography 10/03/2024 10:1 4 AM CDT Narrative 10/03/2024 10:19 AM CDT FULL FIELD DIGITAL BILATERAL SCREENING MAMMOGRAMS WITH CAD AND 3-D TOMOSYNTHESIS DATE: 10/02/2024 3:26 PM PREVIOUS EXAM DATE/S (EVALUATED FOR COMPARISON): None INDICATION: Screening TECHNIQUE: Bilateral craniocaudad (CC) and mediolateral oblique (MLO) views. Images were interpreted with the aid of CAD. 3-D tomosynthesis images were performed. Imaging was performed with implants included and implants excluded TISSUE DENSITY: There are scattered areas of fibroglandular density FINDINGS: The right breast implant is ruptured and compressed. The left breast implant is unremarkable. There is no dominant mass, skin thickening, tumor calcification complex, or architectural distortion. ASSESSMENT: BI-RADS 2 - Benign Finding(s) RECOMMENDATIONS: Continued annual screening mammography The above findings should be correlated with physical examination. A relatively nonspecific study should not preclude additional evaluation if suspicious findings are present clinically. > Interpreting Provider: Virgilio Wallace JR, MD on 10/03/2024 10:19 AM Allison wHang PA-C MAMMO ORDERABLES Final Result * LIPID PROFILE (08/13/2024 10:[address] [facility]) Cholesterol 162 <200 mg/dL 08/13/2024 1:05 PM [facility] Triglycerides 41 <150 mg/dL 08/13/2024 1:05 PM [facility] HDL Cholesterol 73 >40 mg/dL 1:05 PM [facility] Chol HDL Ratio 2.2 1.0 - 6.0 08/13/2024 1:05 PM [facility] LDL Calculated 81 65 - 130 mg/dL 08/13/2024 1:05 PM [facility] VLDL Calculated 8 <=30 mg/dL 1:05 PM [facility] Blood BLOOD SPECIMEN / Unknown Venipuncture / Unknown 08/13/2024 10:38 AM BUTTON STATION WORKER 08/13/2024 10:[address] [facility] Narrative [facility] - 08/13/2024 1:[address] [facility] Lipid Profile Comment: CHOLESTEROL LEVEL..................CLINICAL INTERPRETATION LESS THAN 200 MG/DL..............................DESIRABLE 200-239 MG/DL..............................BORDERLINE HIGH GREATER THAN 240 MG/DL................................HIGH LDL-CHOLESTEROL LEVEL..............CLINICAL INTERPRETATION LESS THAN 100 MG/DL................................OPTIMAL 100-129 MG/DL.................................NEAR OPTIMAL GREATER THAN 160 MG/DL...........................HIGH RISK HDL RISK LEVEL GREATER THEN 60 MG/DL............................DECREASED 40-60 MG/DL........................................AVERAGE LESS THAN 40 MG/DL...............................INCREASED TRIGLYCERIDE LEVEL..................CLINICAL INTERPRETATION LESS THAN 150 MG/DL...............................DESIRABLE 150-199 MG/DL...............................BORDERLINE HIGH 200-499 MG/DL..........................................HIGH GREATER THAN 500..................................VERY HIGH THE NATIONAL CHOLESTEROL EDUCATION PROGRAM HAS SET THE ABOVE GUIDELINES (REFERANCE VALUES) FOR CHOLESTEROL AND HDL. RISK ASSOCIATED WITH CHOLESTEROL/HDL RATIOS RISK....................MALE RATIO.............FEMALE RATIO 1/2 AVERAGE.................<3.4.......................<3.3 LOW RISK.................... 4.0 ...................... 3.8 AVERAGE..................... 5.0 ...................... 4.5 2X AVERAGE.................. 9.5 ...................... 7.0 3X AVERAGE...................>23........................>11 Allison Hwang PA-C LAB - CHEMISTRY ORDERABLES Fin al Result Performing Organization Address City/State/[facility] de Phone Number [facility] [address] from Last 3 Months or Most Recently Relevant to Health Maintenance [place] [address] [facility] Care Teams Biometric Fingerprinting Technician Relationship Specialty Start Date End Date Yolie Jauregui APRN-CNP [facility] [place] [address] PCP - General Nurse Practitioner 11/06/24 Carola Ashley APRN-CNP [address] [id number] Nurse Practitioner Nurse Practitioner 06/19/24
--- OUTSIDE RECORDS SUMMARY | 2025-01-01 08:04 | XMS_ITS | Continuity of Care Document ---
Author Organization [facility] Address [address] [place] [address] Phone Care Team Providers Care Solar Photovoltaic Designer Name Role Phone Burton Marino MD Unavailable Unavailable Allergies, Adverse Reactions, Alerts Substance Reaction Status Criticality azithromycin Active No Information Penicillins Unknown Active No Information Medications Medication Instructions Dosage Effective Dates (start - stop) Status Comments metronidazole 0.75 % topical gel apply by topical route 2 times every day a thin layer to the affected area(s) in the morning and evening 0.00 - Active triamcinolone acetonide 0.5 % topical cream apply by topical route 2 times every day a thin layer to the affected area(s) 0.00 - Active do not use more than 2 weeks Procedures Procedure Date PREV VISIT, NEW, AGE 18-39 OFFICE/OUTPATIENT VISIT, [facility] Advance Directives Directive Yes / No Effective Date File Name No Information Encounters Encounter Description Practice Location Reason(s) For Visit Diagnoses Date Provider Providers Copied on Encounter PREV VISIT, NEW, AGE 18-39 [facility], [facility] [employer] [place], [place], [id number], tel:[phone] [facility] Physical (chief complaint) Polycystic ovarian syndromeRashEncount er for general adult medical exam w abnormal findings Ned Manrique. [address] [place], [place], [id number] , [place]. tel:[phone] Family History Family Member Type Diagnosis Age At Onset Father Problem (finding) Alive and well Mother Problem (finding) Thyroid disorder Sister Problem (finding) Alive and well Payers Payer name Insurance type Covered republican ID Authoriza tion(s) No Information Social History Type Description Quantity Date Captured Comments Alcohol Use Details No Caffeine Use Details Unknown Tobacco Use Status Never smoked tobacco 2016 Smoking Status Never smoker Non-Smoking Tobacco Use Details : No Details Available : No Details Available Sex Female Vital Signs Date / Time: Height Weight BMI Pulse Rate Blood Pressure Temperature Respiratory Rate Body Surface Area Head Circumference BMI percentile Pulse Ox Inhaled Ox 12:10 PM 62.00 in 159.20 lbs 29.1 2 kg/m eter (2) 81 /min 117/80 mm[Hg] 97.8 F 16 /min Chief Complaint And Reason For Visit From encounter dated '01/27/2017 12:10'. Physical (chief complaint). Description: Pt needs annual physical. Pt c/o one spot of facial rash on right side of cheek for 6 weeks. Pt initially notices multiple small bumps which resolved but it comes and goes. Pt notices mild burning sensation. Pt denies any drainage. Pt has been applying oTC steroid which helps sometimes. Pt states that she has PCOS and she has not had any period for 3 months. Pt denies any other complaints Plan Of Treatment Date Type Action Status No Information History Of Present Illness Encounter Date Complaint History Of Prese nt Illness Physical Pt needs annual physical. Pt c/o one spot of facial rash on right side of cheek for 6 weeks. Pt initially notices multiple small bumps which resolved but it comes and goes. Pt notices mild burning sensation. Pt denies any drainage. Pt has been applying oTC steroid which helps sometimes. Pt states that she has PCOS and she has not had any period for 3 months. Pt denies any other complaints Instructions Date Instruction Additional Infor mation Prescribed Activity and Exercise Education Related to Dietary Surveillance and Counseling Prescribed Diet Educ ation/Lifestyle Education Regarding Diet Related to Dietary Surveillance and Counseling Perform monthly self breast examinations. Related to Encntr for general adult medical exam w/o abnormal findings Increase activity. Related to En cntr for general adult medical exam w/o abnormal findings Perform monthly self breast examinations. Related to Encntr for general adult medical exam w/o abnormal findings Increase activity. Related to En cntr for general adult medical exam w/o abnormal findings Prescribed Activity and Exercise Education Related to Dietary Surveillance and Counseling Prescribed Diet Educ ation/Lifestyle Education Regarding Diet Related to Dietary Surveillance and Counseling Increase physical activity Relat ed to Encounter for general adult medical exam w abnormal findings Weight management Related to Enc ounter for general adult medical exam w abnormal findings Assessments Type Assessment Date assessment Polycystic ovarian syndrome assessment Rash assessment Encounter for general adult medi karrie exam w abnormal findings Mental Status Date Cognitive Assessment Orientation - Enders ed to time, place, person, situation.
--- OUTSIDE RECORDS SUMMARY | 2025-01-01 08:04 | XMS_ITS | Encounter Summary ---
Author Organization [facility] Address [address] [place] [address] Care Team Providers Care Wash And Greaser Name Role Phone Carola Ashlye REPAIR TECHNICIAN-COMPRESSOR ASSEMBLER Unavailable [phone] Yolie Jauregui REPAIR TECHNICIAN-COMPRESSOR ASSEMBLER Primary Care Provider Encounter Details Date Type Department Care Team (Late st Contact Info) Description 11/25/2024 Results Follow-Up [facility] - [facility] Medicine [address] [place] [phone] Yolie Jauregui REPAIR TECHNICIAN-COMPRESSOR ASSEMBLER [address] [place] [phone] Social History Tobacco Use Types Packs/Day [...] on filedocumented in this encounter Care Teams Wash And Greaser Relationship Specialty Start Date End Date Yolie Jauregui REPAIR TECHNICIAN-RAMESH [address] [place] [phone] PCP - General Nurse Practitioner 11/06/24 Carola Ashley APRN-COMPRESSOR ASSEMBLER [address] [phone] Nurse Practitioner Nurse Practitioner 06/19/24 documented as of this encounter
--- OUTSIDE RECORDS SUMMARY | 2025-01-01 08:04 | XMS_ITS | Clinical Summary ---
Author Organization [facility] Address [address] [place] [id number] Care Team Providers Care Papeterie Table Assembler Name Role Phone Allison Hwang PA-C Primary Care Provider Allergies Active Allergy Reactions Criticality Noted Date Comments Azithromycin Hives,Itching,Nausea Only,Other/Unknown (See Comments),Palpitations Low 03/05/2021 azithromycin Iodinated Diagnostic Agents Anaphylaxis,Anxiety,Hea dache,Nausea And Vomiting,Palpitations,S hortness Of Breath 09/04/2024 Iodine Anaphylaxis High 10/11/2021 Penicillins Hives,Itching,Rash Medium 01/08/2020 Shellfish-Derived Products Anaphylaxis,Other/Unkno wn (See Comments),Hives,Itching ,Palpitations,Rash,Alyce oedema High 03/05/2021 Medications Vitamin D, Ergocalciferol, [address] UNIT capsule Take 1 capsule (50,000 Units) by mouth 12/14/2022 Active ondansetron (ZOFRAN) 4 MG tablet Take 1 tablet (4 mg) by mouth every 8 (eight) hours if needed 05/30/2022 Active hydrOXYzine (ATARAX) 25 MG tablet Take 1 tablet (25 mg) by mouth 3 times daily as needed 09/03/2020 Active folic acid (FOLVITE) 1 MG tablet Take 1 tablet (1 mg) by mouth Nightly 08/13/2024 Active Active Problems Problem Noted Date Diagnosed Date PCOS (polycystic ovarian syndrome) 07/18/2024 Severe anxiety 07/18/2024 Kidney stone 03/01/2022 Umbilical hernia without obstruction or gangrene 10/11/2021 Family History Medical History Relation Name Comments Diabetes Father Relation Name Status Comments Father Social History Tobacco Use Types Packs/Day Years Used Date Smoking Tobacco: Never Smokeless Tobacco: Never Alcohol Use Standard Drinks/Week Comments Not Currently 0 (1 standard drink = 0.6 oz pur e alcohol) [facility] Utilities Answer Date Recorded In the past 12 months has th e electric, gas, oil, or water company threatened to shut off services in your home? No 09/03/2024 PHQ-2 Answer Date Recorded Patient Health Questionnaire-2 Score 0 09/04/2024 Housing Stability Vital Sign Answer Etd e Recorded In the last 12 months, was t here a time when you were not able to pay the mortgage or rent on time? No 09/03/2024 In the past 12 months, how m any times have you moved where you were living? 0 09/03/2024 At any time in the past [address] [facility], were you homeless or living in a [facility] (including now)? No 09/03/2024 Alcohol Use Answer Date Recorded Frequency of Alcohol Consumption Not on file 09/04/2024 Average Number of Drinks Not on file 025 Frequency of Binge Drinking Not on file 08/11 Alcohol Use Status Not Currently 09/04/2024 Average alcohol consumption Not on file 08/11 Comments Unknown Sex and Gender Information Value Date Recorded Sex Assigned at Not on file Legal Sex Female 9:41 AM CDT Gender Identity Not on file Sexual Orientation Not on file Plan of Treatment Health Maintenance Due Date Last Done Comments HIV Screening 1982 Hepatitis C Screening ages 1 8 to 79 once 1982 MMR VACCINES (1 of 1 - Stand reggie series) 1983 DEPRESSION SCREENING 1994 Varicella Vaccine (1 of 2 - 13+ 2-dose series) 1995 HPV VACCINES (1 - 3-dose series) 1997 ADULT TETANUS 2001 HEPATITIS B VACCINES (1 of 3 - 19+ 3-dose series) 2001 BREAST CANCER SCREENING 2022 YEARLY WELLNESS EXAM 09/16/2022 09/16/2021 COVID-19 Immunization (1 - 2 season) 2024 CERVICAL CANCER SCREENING 09/16/2024 09/16/2021 Influenza Vaccine 01/10/2025 Zoster Vaccine (Recombinant Vaccine) (1 of 2) 2032 HEPATITIS A VACCINES Aged Out No long er eligible based on patient's age to complete this topic HIB VACCINES Aged Out No longer eligi ble based on patient's age to complete this topic IPV VACCINES Aged Out No longer eligi ble based on patient's age to complete this topic MENINGOCOCCAL VACCINE Aged Out No [place] goyo eligible based on patient's age to complete this topic Meningococcal B Vaccine Aged Out No l onger eligible based on patient's age to complete this topic Pneumococcal Vaccine: Peds t o 50 & At-Risk Patients Aged Out No longer eligible b ased on patient's age to complete this topic ROTAVIRUS VACCINES Aged Out No longer eligible based on patient's age to complete this topic Insurance [facility] Care Teams Papeterie Table Assembler Relationship Specialty Start Date End Date Allison Hwang PA-C [address] [place] [address] PCP - General Physician Powerhouse Laborer 08/30/24
--- OUTSIDE RECORDS SUMMARY | 2025-01-01 08:04 | XMS_ITS | Data Portability ---
Author Organization [employer] , [facility] Address [address] [place] [address] Assessment No assessment recorded. Plan of Treatment Reminders Order Date Submit Date Provider Last Modified By Organization Details Last Modified Time Details Appointments None recorded. Lab culture, urine 2023 024 [employer] [facility], [address] [place], [address], 4 23:44:33 bacterial vaginosis + vaginitis panel, vaginal 2023 024 Tepha Reilly, [address] [place], [address], 4 15:19:12 HPV E6+E7 mRNA, qualitative PCR, cervix - LMP 12/26/22, PAP 09/10/21, Partner Vasectomy, not , cervical 2022 023 Expa Reilly, [address] [place], [address], 3 09:42:32 pap, LB - LMP 12/26/22, PAP 09/10/21, Partner Vasectomy, not , cervical 2022 023 ZIIBRA [facility], [address] [place], [address], 3 09:42:32 Referral None recorded. Procedures None recorded. Surgeries None recorded. Imaging MAMMO, screening, digital, bilateral 2022 023 [email or web address] Not available 14:40:24 Medication Orders None recorded. Patient TargetsNo targets recorded. Patient Instructions Encounter Date Encounter Id Patient Instructions Last Modified By Organization Details Last Modified Time 01/03/2023 [id number] Patient Health Questionnaire-9* [email or web address] Not available 01/17/2023 17:05:47 mammogram: about this test tyenne Not available 01/04/2023 09:42:32 Reason for Referral None Reported. Results Created Date Observation Date Name Description Value Unit Range Abnormal Flag Note LastModifiedBy Organization Detail LastModifiedTime 01/04/2001/05/2023 HPV HIGH RISK HPV high risk Negati ve negati ve normal The HPV High Risk assay is inten ded for use as co-te sting with cytol ogy and not as a subst itute for regul ar cervi karrie cytol ogy scree bill. This assay is not inten ded for use as a scree bill devic e for women under age 30 with bryan l cervi karrie cytol ogy. Not Available [address], [address], 01/06/2023 08:35:18 01/04/20 23 01/09/2023 THINP REP TIS PAP clinical information: normal PARTN ER JUWAN VALERIA Not Available [facility] [address] [place], [address], 01/09/2023 22:08:38 01/04/20 23 01/09/2023 THINP REP TIS PAP LMP: normal Not Available [facility] [address] [place], [address], 01/09/2023 22:08:38 01/04/20 23 01/09/2023 THINP REP TIS PAP prev. Pap: normal 2 Not Available [facility] [address] [place], [address], 01/09/2023 22:08:38 01/04/20 23 01/09/2023 THINP REP TIS PAP prev. BX: normal None given Not Available [address] [address] [place], [address], 01/09/2023 22:08:38 01/04/20 23 01/09/2023 THINP REP TIS PAP source: normal Cervi x Not Available [address] [address] [place], [address], 01/09/2023 22:08:38 01/04/20 23 01/09/2023 THINP REP TIS PAP statement of adequacy: normal Satis facto ry for evalu ation . Endoc ervic al/tr ansfo rmati on zone compo nent prese nt. Not Available [address], [address], 01/09/2023 22:08:38 01/04/20 23 01/09/2023 THINP REP TIS PAP interpretati on/result: normal Cytol ogy Resul ts: Negat moose for intra epith elial lesio n or mellisa almeida . Not Available [address] [address] [place], [address], 01/09/2023 22:08:38 01/04/20 23 01/09/2023 THINP REP TIS PAP comment: normal This Pap test has been evalu ated with compu ter darian anali techn ology . Not Available [address] [address] [place], [address], 01/09/2023 22:08:38 01/04/20 23 01/09/2023 THINP REP TIS PAP cytotechnolo gist: normal ABC, CT( CP) CT scree bill locat ion: [address] [address] [address] [place] [place] [address] Not Available [address] [address] [place], [address], 01/09/2023 22:08:38 01/04/20 23 01/09/2023 THINP REP TIS PAP comment EXPLA NATOR Y NOTE: The Pap is a scree bill test for cervi karrie cance r. It is not a diagn ostic test and is subje ct to false negat moose and false posit moose resul ts. It is most relia ble when a satis facto ry sampl e, regul priti obtai pooja, is submi tted with relev ant clini karrie findi ngs and histo ry, and when the Pap resul t is evalu ated along with histo staci and curre nt clini karrie infor matio n. Not Available [address], [address], 01/09/2023 22:08:38 12/21/1912/23/2023 URINA LYSIS , COMPL ETE W/REF GABRIELA TO CULTU RE color DARK YELLOW yellow normal Not Available [address], [address], 12/23/2023 02:45:00 12/21/19 24 12/23/2023 URINA LYSIS , COMPL ETE W/REF GABRIELA TO CULTU RE appearance TURBID clear abnormal Not Available [address], [address], 12/23/2023 02:45:00 12/21/19 24 12/23/2023 URINA LYSIS , COMPL ETE W/REF GABRIELA TO CULTU RE specific gravity 1.031 1.001- 1.035 normal Not Available [address], [address], 12/23/2023 02:45:00 12/21/19 24 12/23/2023 URINA LYSIS , COMPL ETE W/REF GABRIELA TO CULTU RE pH 6.0 5.0-8. 0 normal Not Available [address], [address], 12/23/2023 02:45:00 12/21/19 24 12/23/2023 URINA LYSIS , COMPL ETE W/REF GABRIELA TO CULTU RE glucose NEGATI VE negati ve normal Not Available [address] [address] [place], [address], 12/23/2023 02:45:00 12/21/19 24 12/23/2023 URINA LYSIS , COMPL ETE W/REF GABRIELA TO CULTU RE bilirubin NEGATI VE negati ve normal Not Available [facility] [address] [place], [address], 12/23/2023 02:45:00 12/21/19 24 12/23/2023 URINA LYSIS , COMPL ETE W/REF GABRIELA TO CULTU RE ketones NEGATI VE negati ve normal Not Available [facility] [address], [address], 12/23/2023 02:45:00 12/21/19 24 12/23/2023 URINA LYSIS , COMPL ETE W/REF GABRIELA TO CULTU RE occult blood 3+ negati ve abnormal Not Available [address] [address] [place], [address], 12/23/2023 02:45:00 12/21/19 24 12/23/2023 URINA LYSIS , COMPL ETE W/REF GABRIELA TO CULTU RE protein 1+ negati ve abnormal Not Available [facility] [address] [address] [place], [address], 12/23/2023 02:45:00 12/21/19 24 12/23/2023 URINA LYSIS , COMPL ETE W/REF GABRIELA TO CULTU RE nitrite NEGATI VE negati ve normal Not Available [facility] [address] [address] [place], [address], 12/23/2023 02:45:00 12/21/19 24 12/23/2023 URINA LYSIS , COMPL ETE W/REF GABRIELA TO CULTU RE leukocyte esterase NEGATI VE negati ve normal Not Available [facility] [address] [address] [place], [address], 12/23/2023 02:45:00 12/21/19 24 12/23/2023 URINA LYSIS , COMPL ETE W/REF GABRIELA TO CULTU RE WBC 0-5 /hpf < or = 5 normal Not Available [address], [address], 12/23/2023 02:45:00 12/21/19 24 12/23/2023 URINA LYSIS , COMPL ETE W/REF GABRIELA TO CULTU RE RBC 20-40 /hpf < or = 2 abnormal Not Available [address], [address], 12/23/2023 02:45:00 12/21/19 24 12/23/2023 URINA LYSIS , COMPL ETE W/REF GABRIELA TO CULTU RE squamous epithelial cells 20-40 /hpf < or = 5 abnormal Not Available [address], [address], 12/23/2023 02:45:00 12/21/19 24 12/23/2023 URINA LYSIS , COMPL ETE W/REF GABRIELA TO CULTU RE bacteria FEW /hpf none seen abnormal Not Available [address], [address], 12/23/2023 02:45:00 12/21/19 24 12/23/2023 URINA LYSIS , COMPL ETE W/REF GABRIELA TO CULTU RE amorphous sediment MANY /hpf none or few abnormal Not Available [address], [address], 12/23/2023 02:45:00 12/21/19 24 12/23/2023 URINA LYSIS , COMPL ETE W/REF GABRIELA TO CULTU RE hyaline cast NONE SEEN /lpf none seen normal Not Available [address], [address], 12/23/2023 02:45:00 12/21/19 24 12/23/2023 URINA LYSIS , COMPL ETE W/REF GABRIELA TO CULTU RE comments MODERA TE MUCOUS THREAD S The prefe rred speci men for urina lysis is urine prese rved using a [facility] stand reggie urine prese rvati ve tube that may be obtai pooja from your [facility] suppl ier. Pleas e revie w resul ts with cauti on. Urina lysis testi ng on unpre serve d urine may produ ce alter ation of chemi karrie const ituen ts and deter iorat ion of forme d eleme nts. Not Available [facility] [address] [address] [place], [address], 12/23/2023 02:45:00 12/21/19 24 12/23/2023 REFLE XIVE URINE CULTU RE reflexive urine culture NO CULTU RE INDIC ATED Not Available [facility] [address] [address] [place], [address], 12/23/2023 02:45:00 12/21/19 24 12/23/2023 CULTU RE, URINE , ROUTI NE culture, urine, routine SEE NOTE CULTU RE, URINE , ROUTI NE Micro Numbe r: [id number] Test Statu s: Final Speci men Sourc e: Urine Speci men Quali ty: Adequ ate Resul t: Mixed genit al kate isola anali. These super ficia l bacte caitlyn are not indic ative of a urina ry tract infec tion. No furth er organ ism ident ifica tion is warra nted on this speci men. If clini abelardo indic ated, recol lect clean -catc h, mid-s tream urine and trans ilia immed iatel y to Urine Cultu re Trans port Tube. We recei marybeth a prese rved urine cultu re trans port tube with eithe r no order indic ated or a sourc e which is inapp ropri ate for the test reque sted. A urine cultu re was perfo rmed. If this is not what you inten ded to order , pleas e conta ct your local clien t servi ce repre senta tive immed iatel y so that we can adjus t our abner ng appro oly rocha. You may also inqui re about alter nativ e or addit ional testi ng. Not Available [facility] [address] [place], [address], 12/23/2023 02:45:01 12/27/19 24 12/28/2023 CULTU RE, URINE , ROUTI NE culture, urine, routine SEE NOTE CULTU RE, URINE , ROUTI NE Micro Numbe r: [id number] Test Statu s: Final Speci men Sourc e: Urine Speci men Quali ty: Adequ ate Resul t: No Growt h Not Available [facility] [address] [place], [address], 12/28/2023 23:44:33 12/27/19 24 12/29/2023 VAGIN ITIS PLUS STD PANEL bacterial vaginosis BV neg negati ve normal Not Available [address], [address], 12/29/2023 15:19:12 12/27/19 24 12/29/2023 VAGIN ITIS PLUS STD PANEL renato species C. spp neg negati ve normal Not Available [address], [address], 12/29/2023 15:19:12 12/27/19 24 12/29/2023 VAGIN ITIS PLUS STD PANEL renato glabrata C. gla neg negati ve normal Not Available [address], [address], 12/29/2023 15:19:12 12/27/19 24 12/29/2023 VAGIN ITIS PLUS STD PANEL trichomonas vaginalis CV/TV TRICH neg negati ve normal Not Available [address], [address], 12/29/2023 15:19:12 12/27/19 24 12/29/2023 VAGIN ITIS PLUS STD PANEL chlamydia trachomatis CT neg negati ve normal This repor t is inten ded for us in clini karrie monit oring and manag ement of patie nts. It is not inten ded for use in medic al-le gal appli catio n. Not Available [facility] [address] [place], [address], 12/29/2023 15:19:12 12/27/19 24 12/29/2023 VAGIN ITIS PLUS STD PANEL neisseria gonorrhoeae GC neg negati ve normal This repor t is inten ded for us in clini karrie monit oring and manag ement of patie nts. It is not inten ded for use in medic al-le gal appli catio n. Not Available [facility] [address] [place], [address], 12/29/2023 15:19:12 Result Notes None recorded. Procedures Surgical History Date Name Laterality Status Provider Name and Address Organization Details Recorded Time 01/04/20 Date of Last Pap Smear completed Latasha [place] [facility] 04/24/2023 11:26:13 Breast Augmentation completed Linda [employer] [place] [facility] 01/03/2023 16:14:56 Imaging Results None recorded. Procedure Notes None recorded. Medical Equipment None Reported. Allergies Allergen ID Allergen Name Allergen Category Reaction Reaction Severity Criticality Documentation Date Start Date Code Code System Note Provider Name and Address Organization Details Recorded Time 498598 Product containin g penicilli n (product) medicatio n Not available Not available Not available 01/03/2023 31880 8001 SNOMED Linda Stadge null, [facility] 3 16:14:35 400775 shellfish derived food,medi cation Not available Not available Not available 01/03/2023 11382 UNK Linda Stadge null, [employer] [facility] [employer] [facility] IV 16:14:35 049891 azithromy stephanie medicatio n Not available Not available Not available 01/03/2023 53850 RxNorm Linda Stadge null, [facility] IV 16:15:36 Medications Name Sig Start Date Stop Date Status Note LastModified by Organization Details LastModified Time venlafaxine ER 37.5 mg capsule,exte nded release 24 hr 01/03 completed Not Available Not Available Not Available ondansetron HCl 4 mg tablet 01/03 completed Not Available Not Available Not Available hyoscyamine sulfate 0.125 mg tablet 01/03 completed Not Available Not Available Not Available sertraline 25 mg tablet 01/03 completed Not Available Not Available Not Available omeprazole 20 mg capsule,julieta yed release 01/03 completed Not Available Not Available Not Available hydroxyzine HCl 25 mg tablet 01/03 completed Not Available Not Available Not Available ergocalcifer ol (vitamin D2) 1,250 mcg (50,000 unit) capsule TAKE 1 CAPSULE BY MOUTH 1 TIME A WEEK 12/26 completed Not Available Not Available Not Available Vitals Date Recorded Body height Body mass index (BMI) Body weight Systolic And Diastolic Provider Name and Address Organization Details Last Updated DateTime 12/27/2023 157.48 cm 23.4 kg/m2 16982.54 g 124/74 mm[Hg] Irene Hernandez [place] [facility] 12/27/2023 16:33:34 Date Recorded Body height Body mass index (BMI) Body weight Systolic And Diastolic Provider Name and Address Organization Details Last Updated DateTime 01/03/2023 157.48 cm 23.3 kg/m2 16548.67 g 125/78 mm[Hg] [facility] [employer] 01/03/2023 16:19:33 Date Recorded Body height Body mass index (BMI) Body weight Systolic And Diastolic Provider Name and Address Organization Details Last Updated DateTime 04/24/2023 157.48 cm 23.6 kg/m2 02594.42 g 126/78 mm[Hg] [facility] [employer] [facility] 04/24/2023 15:26:06 Social History Question Answer Notes LastModified by Organizat ion Details LastModified Time Tobacco Smoking Status Never Smoker Linda Savagelily [facility] [employer] [facility] 01/03/2023 16:14:52 Are You Blind Or Do You Have Difficulty Seeing? No Information not available 01/03/2023 Are You Deaf Or Do You Have Serious Difficulty Hearing? No Information not available 01/03/2023 What Type Of Diet Are You Following? REGULAR Information not available 01/03/2023 How Many Children Do You Have? 1 Information not available 01/03/2023 What Is Your Relationship Status? Information not available 01/03/2023 Are You Sexually Active? Yes Information not available 01/03/2023 Sex: Unknown Functional Status Question Answer Note LastModified by Organizat ion Details LastModified Time What is your level of alcohol consumption? None Information not available 01/03/2023 Are you currently employed? No Information not available 01/03/2023 Do you or have you ever used e-cigarettes or vape? Never used electronic cigarettes Information not available 01/03/2023 What is your exercise level? Occasional Information not available 01/03/2023 Mental Status None recorded. Family History Relationship Description Onset Age of this Age Resolved Age Notes LastModified by Organization Details LastModified Time Mother Hyperthyroid ism tstadge Not available 2022 16:14:40 Father Irritable bowel syndrome tstadge Not available 2022 16:14:40 Father Hypertensive disorder tstadge Not available 2022 16:14:40 Father Diabetes mellitus tstadge Not available 2022 16:14:40 Medical History Condition Response Polycystic Ovarian Syndrome Y Seasonal allergies Y IBS (Irritable Bowel Syndrome) Y GERD (reflux) Y Gynecological History Statement/Question Response Flow Moderate Date of last HPV 01/03/2023 Frequency of Cycle (Q days) 30 Date of LMP 12/22/2023 Date of Last Pap Smear 01/03/2023 Duration of Flow (days) 3-5 Current Control Method Partner Vas ectomy Age at Menarche 17 Obstetrics History GPAL:G 1 P 1 0 0 1 Type Value Full Term 1 Living 1 Total 1 Past Encounters Encounter ID Performer Location Encounter Start Date Encounter Closed Date Diagnosis/Indication Diagnosis SNOMED-CT Code Diagnosis ICD10 Code Diagnosis Note [id number] MITCHELL Willoughby [facility] [address] [place] [address] 01/03/2023 16:12:07 01/03/2023 16:50:53 Gynecologic examination 18030266 Z01.419 Mammogram Order given today COUNSELING was provided today regarding the following topics: healthy eating habits. Patient education given on weight management ., regular exercise. Patient handout given on Fitness, breast self-exam, COVID Vaccine: R/B of vaccine discussed today., and Calcium and Vitamin D. Advised to avoid sick contacts, practice social distancing , good handwashin g. If you develop respirator y symptoms, fever,coug h, or shortness of breath you should contact healthcare provider immediatel y. and Forensic Document Examiner Specific: Annual Forensic Document Examiner screening: , monthly self breast exam, calcium supplement ation, yearly mammograph y, Multivitam in daily FOLLOW-UP: in one year. Screening for malignant neoplasm of cervix 766673320 Z12.4 Screening for malignant neoplasm of breast 261474953 Z12.31 Depression screening 171 720652 Z13.31 History of bilateral breast implants 4074911485 107 Z98.82 recommend follow up with breast surgeon to assess implant status [id number] Christine Oerllana FELI [facility] [address] [place] [address] 04/24/2023 15:19:25 04/24/2023 16:05:06 Folliculitis 60816577 L73.9 keep clean and dry, do not pick or scratch area. May apply topical hydrocorti sone cream. [id number] MITCHELL Willoughby [facility] [address] [place] [address] 12/27/2023 16:12:04 12/27/2023 17:15:43 Urinary tract infectious disease 58063872 N39.0 Increase your intake of oral fluids. Avoid holding your urine; empty your bladder when you first feel the urge to urinate. Urinate immediatel y after intercours e to help avoid future bladder infections . Pain in pelvis 74106396 R10.2 if no infection will need to follow up for US if pain persists Health Concerns Section Related Observation LastModified by Organization Detai ls LastModified Time None Recorded Concern Status LastModified by Organization Details LastModified Time None Recorded Advance Directives Directive None Recorded Payers Insurance Date Sequence Insurance Name Policy Number Policy Bañuelos Covered Member ID Bañuelos Member ID Guarantor Name 01/08/2024 1 [facility] (MEDICAID HMO) [id number] Elif Rolon [id number] Bindu Rolon Notes Date Note Type Note Provider Name and Address Organization Details Recorded Time 01/03/2023 text/html Annual GYNReport ed bypatient.Menstrual cycle:Normal menses Urinary symptoms:No hematuria; No incontinence Vulva:No genital lesion Vagina:Normal vaginal discharge Breast:No breast pain; No breast lump; has implants that are > 20 years old. Current Contraception:Satisfi ed with current contraception; Sexually active: high-risk behavior; Partner had vasectomy Sexual complaints:No sexual complaints; No pain during intercourse Menopausal Symptoms:No menopausal symptoms; Normal vaginal lubrication Psychological symptoms:No depression;Anxiety Preventive measures:Encourage self breast examination; Encourage regular exercise; Encourage no tobacco use; Encourage regular mammograms starting age 40 MITCHELL Willoughby [address] [place], [address], [employer] [facility] 01/04/2023 12:01:25 04/24/2023 text/html Vaginal/Vulvar ProblemReported bypatient.Location:le ft labia Onset/Timing:started: (2 weeks ago) Duration:present for 1-2 weeks Quality:tender; single lesion/sore; feels in between squishy & hard Severity:mild; improving Context:sexually active; condom use: no Alleviating Factors:none Aggravating Factors:none Associated Symptoms:no vaginal itching; no vaginal irritation; no vaginal pain; no vulvar itching/irritation; no pelvic pain; no dyspareunia; no dysuria; no abdominal pain Noticed a couple of weeks ago now noticed a pea size lump left labia. They had gotten a new hot tub. Lump now has a purple dot in the center. Has not had intercourse since she noticed the lump. MITCHELL Willoughby [address] [facility], [place], [address], [employer] [facility] 04/24/2023 16:31:15 12/27/2023 text/html Lower Urinary Tr act Symptoms (LUTS)Reported bypatient.Location:bi lateral Quality:aching Onset/Timin-3 weeks Context:denies excessive fluid intake; denies excessive caffeine intake; no dyspareunia; denies new medication treatment Associated Symptoms:abdominal pain;urgency; sexually active; Cloudy urine Patient is here today for possible UTI. She reports for 2-3 weeks having pain after urination, urinary urgency and cloudy urine. She states that her pain is usually when she sits after urination or when she bends over. She also stated that she has noticed 2-3 days ago having cloudy urine and urgency. When she feels the need to urinate, she has the need to urinate immediately or she is having urine leakage MITCHELL Willoughby [address] [place], [address], [facility] 12/31/2023 16:39:27 OBGyn Episode No OBEpisode recorded.
--- OUTSIDE RECORDS SUMMARY | 2025-01-01 08:04 | XMS_ITS | Data Portability ---
Author Organization [facility] [place] Address [address] [place] [address] Care Team Providers Care Release Of Information Specialist Name Role Phone NIKKI RICHARDSON Primary Care Provider VENKAT BRITO Primary Care Provider Assessment Encounter Date Assessment Date Assessment LastModified by Organization Details LastModified Time 09/03/2021 09/03/2021 reviewed vulvar care. f/u wwe [email or web address] Not available 09/03/2021 14:10:49 Plan of Treatment Reminders Order Date Submit Date Provider Last Modified By Organization Details Last Modified Time Details Appointments None recorded. Lab None recorded. Referral None recorded. Procedures None recorded. Surgeries None recorded. Imaging None recorded. Medication Orders Diflucan 150 mg tablet 2021 022 [email or web address] 1 [employer] [facility] #[id number], [address], [phone], 11:40:05 metronidazo le 0.75 % (37.5 mg/5 gram) vaginal gel 2021 022 [email or web address] 1 [facility] #[id number], [address], [id number], 11:40:07 Aygestin 5 mg tablet 2020 021 [email or web address] 1 [id number], [address], [place], [phone], 14:00:41 Patient TargetsNo targets recorded. Patient InstructionsNo instructions recorded. Reason for Referral None Reported. Results Created Date Observation Date Name Description Value Unit Range Abnormal Flag Note LastModifiedBy Organization Detail LastModifiedTime 09/04/19 22 09/03/2021 VAGIN ITIS/ VAGIN OSIS, DNA PROBE renato sp. detection, direct probe Negati ve negati ve Not Available [facility] (Lab) [address] [place], [address], 09/04/2021 09:39:00 09/04/19 22 09/03/2021 VAGIN ITIS/ VAGIN OSIS, DNA PROBE gardnerella vag. detection, direct probe Negati ve negati ve Not Available [facility] (Lab) [address] [place], [address], 09/04/2021 09:39:00 09/04/19 22 09/03/2021 VAGIN ITIS/ VAGIN OSIS, DNA PROBE trichomonas vag. detection, direct probe Negati ve negati ve Not Available [facility] (Lab) [address] [place], [address], 09/04/2021 09:39:00 09/17/19 22 09/16/2021 IMAGE GUIDE D PAP AND HPV REGAR DLESS image guided Pap, HPV regardless of Pap result SEE RESULT S BELOW CASE REPOR T: Cytol ogy Gynec ologi karrie Repor t Case: [id number] Autho ricindy g Provi herb: Cherrie De La Cruz, CHRISSY Colle cted: 09/16 1415 Order ing Locat ion: [place] [facility] Recei marybeth: 09/17 0221 First Scree n: Toritoa mpamax ak, Sivil ay, CT Speci men: Scree bill Pap - Image d, Cervi x STATE MENT OF ADEQU ACY: Satis facto ry for evalu ation Trans forma tion zone compo nent prese nt FINAL DIAGN OSIS: Negat moose for Intra epith elial Lesio n or Isaak elle (NIL) . Elect kendrick galeano sandra d by Kathy diana, Sae pereira, CT on 2021 at 3:25 PM ----- ----- ----- ----- ----- ----- ----- ----- ----- ----- ----- ----- ----- ----- ----- ----- ----- ---- HPV RESUL TS: HPV mRNA E6/E7 : No HPV mRNA Detec anali NOTE: This high risk HPV mRNA assay detec ts fourt een high- risk HPV types (16, 18, 31, 33, 35, 39, 45, 51, 52, 56, 58, 59, 66, 68) witho ut diffe renti ation . COMME NT: Note: This speci men was revie wed by a Cytot echno logis t and/o r Patho logis t (as indic ated in this repor t) after evalu ation using the Thinp rep Imagi ng Syste m. CLINI KARRIE INFOR MATIO N: Menst rual Statu s: LMP (if appli cable ): Clini karrie Histo ry/Pr eviou s Pap: Type of Neopl parish (if appli cable ): Signi fican t Clini karrie Findi ngs: Other Histo ry: Hormo missy (if appli cable ): PAP EDUCA RANDI L NOTE: The Pap Test is a scree bill test with an inher ent false negat moose rate. Liqui d-bas ed sampl ing may decre ase, but will not elimi david, false negat moose resul ts. A negat moose resul t does not precl ude the prese nce and/o r devel opmen t of disea se, since the prese nce of abnor mal cells in the sampl e depen ds on the locat ion of the lesio n and sampl ing techn ique. Olman nued regul ar scree bill is the best metho d of cance r preve ntion . If repor anali cytol ogic findi ng do not corre late with physi karrie and/o r histo rical findi ngs, furth er inves tigat ion is recom nela stephens, as clini abelardo carter nted. Not Available [facility] (Lab) [address] [facility], [place], [address], 09/23/2021 16:27:40 Result Notes None recorded. Procedures Surgical History Date Name Laterality Status Provider Name and Address Organization Details Recorded Time 09/17/19 22 Date of Last Pap Smear completed Tarah Elise [facility] 09/16/2021 11:41:28 06/12/19 augmentation mammoplasty completed Tarah Elise [facility] 09/03/2021 14:02:25 Imaging Results None recorded. Procedure Notes None recorded. Medical Equipment None Reported. Allergies Allergen ID Allergen Name Allergen Category Reaction Reaction Severity Criticality Documentation Date Start Date Code Code System Note Provider Name and Address Organization Details Recorded Time 20333 azithromy stephanie medicatio n Not available Not available Not available 05/29/2020 82893 RxNorm Comme nt: [facility] C[facility] sativ e Agent : ZITHR OMAX; Not Available [facility] 0 14:20:38 01098 shellfish derived food,medi cation Not available Not available Not available 05/29/2020 56934 UNK Comme nt: [facility]at [facility]; Not Available [facility] 0 14:20:38 78981 Product containin g penicilli n (product) medicatio n Not available Not available Not available 09/03/2021 84344 8001 SNOMED Tarah Elise [facility], [facility] 2 14:00:35 Medications Name Sig Start Date Stop Date Status Note LastModified by Organization Details LastModified Time venlafaxi ne ER 37.5 mg capsule,e xtended release 24 hr active Not Available Not Available Not Available fluconazo le 150 mg tablet TAKE 1 TABLET BY MOUTH ONCE 09/16 completed Not Available Not Available Not Available sucralfat e 1 gram tablet active Not Available Not Available Not Available metronida zole 0.75 % (37.5 mg/5 gram) vaginal gel INSERT 1 APPLICAT ORFUL TWICE DAILY BY VAGINAL ROUTE FOR 7 DAYS 09/16 completed Not Available Not Available Not Available ondansetr on HCl 4 mg tablet active Not Available Not Available No t Available hyoscyami ne sulfate 0.125 mg tablet active Not Available Not Available Not Available sertralin e 25 mg tablet active Not Available Not Available Not Available omeprazol e 20 mg capsule,d elayed release active Not Available Not Available Not Available Provera 10 mg tablet take 1 tablet by oral route every day 07/29 completed Prescrib ed Elsewher e: No Locat ion: [facility] By: rosie tellezer DateTime : 12/26/19 08:15:00 AM Not Available Not Available Not Available hydroxyzi ne HCl 25 mg tablet active Not Available Not Available No t Available norethind jon acetate 5 mg tablet TAKE 1 TABLET BY MOUTH EVERY DAY 09/03 completed Not Available Not Available Not Available ergocalci ferol (vitamin D2) 1,250 mcg (50,000 unit) capsule TAKE 1 CAPSULE BY MOUTH 1 TIME A WEEK active Not Available Not Available No t Available hydroxyzi ne HCl 10 mg tablet 07/29 completed Prescrib ed Elsewher e: Yes Loca [facility]ion: [facility] By: evonne Lizama r DateTime : 12/08/19 09:45:00 AM Not Available Not Available Not Available Lo Loestrin Fe 1 mg-10 mcg (24)/10 mcg (2) tablet take 1 tablet by oral route every day 04/20 completed Prescrib ed Elsewher e: No Locat ion: [facility] By: evonne Lizama r DateTime : 12/08/19 09:45:00 AM Not Available Not Available Not Available Vitals Date Recorded Body height Body mass index (BMI) Body weight Systolic And Diastolic Provider Name and Address Organization Details Last Updated DateTime 07/29/2020 154.94 cm 28.9 kg/m2 47085.63 g 128/85 mm[Hg] Dyan Wes [facility] 07/29/2020 10:17:23 Date Recorded Body height Body mass index (BMI) Body weight Systolic And Diastolic Provider Name and Address Organization Details Last Updated DateTime 09/03/2021 154.94 cm 27.8 kg/m2 60163.08 g 119/84 mm[Hg] Tarah Elise [facility] 09/03/2021 14:00:22 Date Recorded Body height Body mass index (BMI) Body weight Systolic And Diastolic Provider Name and Address Organization Details Last Updated DateTime 09/16/2021 154.94 cm 28.3 kg/m2 68416.86 g 134/87 mm[Hg] Tarah Elise [facility] 09/16/2021 11:40:01 Social History Question Answer Notes LastModified by Organizat ion Details LastModified Time Tobacco Smoking Status Never Smoker Dyan cline [facility] 07/29/2020 10:18:50 If You Are , What Was Your Level Of Alcohol Consumption Prior To ? None Information not available 07/29/2020 Are You Blind Or Do You Have Difficulty Seeing? No [email or web address] Information n ot available 09/03/2021 What Is Your Level Of Caffeine Consumption? Occasional Information not available 07/29/2020 In The 14 Days Before Symptom Onset, Have You Had Close Contact With A Laboratory-confirm ed COVID-19 While That Case Was Ill? No [email or web address] Information n ot available 09/03/2021 In The 14 Days Before Symptom Onset, Have You Had Close Contact With A Person Who Is Under Investigation For COVID-19 While That Person Was Ill? No [email or web address] Information not available 09/03/2021 Have You Been To An Area Known To Be High Risk For COVID-19? No [email or web address] Information not available 09/03/2021 Are You Deaf Or Do You Have Serious Difficulty Hearing? No [email or web address] Information not available 09/03/2021 What Type Of Diet Are You Following? REGULAR [email or web address] Information n ot available 09/03/2021 How Many Days Of Moderate To Strenuous Exercise, Like A Brisk Walk, Did You Do In The Last 7 Days? 0 Information not available 07/29/2020 Do You Use Your Seat Belt Or Car Seat Routinely? Yes [email or web address] Information not available 09/03/2021 Do You Have Smoke And Carbon Monoxide Detectors In Your Home? Yes [email or web address] Information not available 09/03/2021 Do You Use Sunscreen Routinely? Yes [email or web address] Information not available 09/03/2021 Has Tobacco Cessation Counseling Been Provided? No Information not available 07/29/2020 Do You Have Difficulty Walking Or Climbing Stairs? No [email or web address] Information not available 09/03/2021 Sex: Unknown Functional Status Question Answer Note LastModified by Organizat ion Details LastModified Time Do you use any illicit or recreational drugs? No Information not available 07/29/2020 Do you or have you ever used any other forms of tobacco or nicotine? No Information not available 07/29/2020 What is your level of alcohol consumption? None Information not available 07/29/2020 Are you able to walk? YESWOREST [email or web address] Information not available 09/03/2021 Are you able to care for yourself? Yes [email or web address] Information n ot available 09/03/2021 Do you have difficulty dressing or bathing? No [email or web address] Information not available 09/03/2021 What is your exercise level? Occasional Information not available 09/03/2021 Mental Status Question Answer Note LastModified by Organization D etails LastModified Time Do you feel stressed (tense, restless, nervous, or anxious, or unable to sleep at night)? [id number] [email or web address] Information not available 09/03/2021 Family History Relationship Description Onset Age of this Age Resolved Age Notes LastModified by Organization Details LastModified Time Mother Disorder of thyroid gland Not available 2020 09:35:49 Notes:Mother: Thyroid diseas e Medical History Condition Response Allergies (Food, seasonal, environmental ) N Other Y Breast Cancer N Drug/Latex Allergies/Reactions Y Blood Transfusion N Lung Disease N Dermatologic Disorders N Defects or Inherited Disease N Breast Problem Y Gestational Diabetes N Hematologic disorders N Anesthesia Complications N History of STI N Deep Vein Thrombosis N Polycystic ovary syndrome Y Anxiety Disorder N Autoimmune disease N Arthritis N Infertility N Polyps N Acid Reflux (GERD) N History of abnormal pap N Cancer N Stroke N Varicosities N Neurologic/Epilepsy N Endometriosis N High Cholesterol N Headaches N Fibromyalgia N Kidney Disease N Heart Problems N Kidney or Bladder Problems N Thyroid Problems N GI Problems N Eating Disorder N Anemia N Art (IVF or FET) N Psychiatric Illness N Ovarian Cancer N Diabetes N Pulmonary (TB, Asthma) N Hepatitis/Liver Disease N No Past Medical History N Eczema N Urinary Tract Infection N Abuse/Domestic Violence N Asthma N Trauma/Violence N Depression/ depression N Heart Disease N Pre-Eclampsia N Hypertension N Osteoporosis N Thrombophilias N Gynecological History Statement/Question Response Date of Last Mammogram Most Recent Bone Density Date of LMP 09/15/2021 Date of Last Pap Smear 09/16/2021 Current Control Method Partner Vas ectomy Desired Control Method Unknown LMP Approximate Obstetrics History GPAL:G 1 P 1 0 0 1 Type Value Full Term 1 Living 1 Total 1 Past Encounters Encounter ID Performer Location Encounter Start Date Encounter Closed Date Diagnosis/Indication Diagnosis SNOMED-CT Code Diagnosis ICD10 Code Diagnosis Note [id number] Gely Weiss , [facility] [address] [address] 07/29/2020 10:06:39 07/29/2020 11:16:27 Pain in pelvis 95168007 R10.2 Today, exam seemed to be benign. We decided to update TVUS for comparison to 2018 imaging. Also agreeable to restarting Aygestin 5mg daily after counseled on this medication . Counseled on medication R/B's, Most common side effects, & use. All questions were answered to patient satisfacti on. She will return to office for TVUS w/OV and med check. Additional precaution bear measures were taken to minimize potential exposure to the Covid-19 virus during this patient s visit, including available hand hand touch up painter upon arrive, temperatur e check and being asked a series of screening questions. All staff wore face coverings during this encounter, as well as provided additional cleaning and sanitizing of all surfaces, including countertop s, pens, chairs, door handles, light switches, etc, prior to and following the patient s visit. Time spent in visit is a total of 15 mins with at least 50% of visit consisting of counseling and review of plan of care. [id number] yCnthia Packer [facility] [address],[facility] [place] [address] 09/03/2021 13:51:21 09/03/2021 14:18:06 Vaginitis 58131505 N76.0 [id number] Cherrie Oropeza [facility] [address],[facility] [place] [address] 09/16/2021 11:12:35 09/16/2021 14:11:23 Gynecologic examination 06571964 Z01.419 Z11.51 Take Calcium with Vitamin D 1200mg daily if not receiving in daily diet. It is strongly advised to have an annual flu shot and up can obtain at most pharmacies . If you have not had a TDap shot in the last 10 years you should obtain one as well. Discussed with patient & provided with informatio n regarding Gardisil vaccine to prevent the 4 strains for HPV that cause cervical cancer if under age 26. Encourage safe sexual practices, to use condoms and limit partners if not already in a monogamous relationsh ip. Do monthly self breast exams. Have mammogram yearly or every other year depending on family history. BRCA testing is now available for patients with strong genetic history of female cancer. If interested contact the office. Engage in daily exercise of low impact aerobic exercise 45-60 minutes 4-5 times weekly. Avoid tobacco and illicit drugs as well as using moderation with alcohol intake less than 1-2 8 oz beverages daily. This lifestyle behavior pattern will lead to less health conditions and longer life span. If BMI greater than 25 weight watchers or dietary consult advised. Patient received above instructio ns, and questions have been answered. If you have any questions please call or respond to this email. Patient was made aware of the patient portal and may obtain a paper copy of today's plan if desired. Health Concerns Section Related Observation LastModified by Organization Detai ls LastModified Time None Recorded Concern Status LastModified by Organization Details LastModified Time None Recorded Advance Directives Directive None Recorded Payers Insurance Date Sequence Insurance Name Policy Number Policy Bañuelos Covered Member ID Bañuelos Member ID Guarantor Name 09/05/2022 1 [facility] (MEDICAID HMO) [id number] Elif Rolon [id number] Bindu Rolon Notes Date Note Type Note Provider Name and Address Organization Details Recorded Time 07/29/2020 text/html Patient is a 40y o white female here today with chronic pelvic pain correlating to onset of ovulation & menses since 2018. She previously used Aygestin 5mg which she voices that does help in the past; but stopped b/c she got on it. Her spouse has a vasectomy so she has not needed BC. Pain is not touted to be daily. Menses is approx 3 days q1mos with minimal cramping except right at onset 1-2d prior; she will feel nauseated and have some dysmenorrhea which is also similar to how she feels during ovulation. 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 Hx of PCOS. Discussed TLH with BSO in 2018. Neg urinary issues Sometimes has IBS like sx's with rotation of C/D. Neg vaginal d/c itching, odor. Neg pain with intercourse. MITCHELL Adam- [address], [place], [address], [facility] 07/29/2020 11:00:01 09/03/2021 text/html Vaginal/Vulvar ProblemReported bypatient.Notes:irri tation on vulva and inside vagina, some increase d/c white took monitstat 1 about 2 weeks ago with little relief, used new product and it was scented Cynthia Packer CNM [address], [place], [address], [facility] 09/03/2021 14:10:57 09/16/2021 text/html Annual GYNReport ed bypatient.Menstrual cycle:Normal menses Urinary symptoms:No hematuria; No incontinence Vulva:No genital lesion Vagina:Normal vaginal discharge Breast:No breast pain; No breast lump; No nipple discharge Sexual complaints:No sexual complaints; No pain during intercourse; Normal libido Menopausal Symptoms:No menopausal symptoms; Normal vaginal lubrication Psychological symptoms:No depression; No anxiety; No PMDD Hernia surgery consult in October. Cherrie cline, [facility] 09/16/2021 14:06:56 OBGyn Episode Ob Episode Information Episode Created Date Number of Fetuses Patient Bloodtype Patient rh Status Prepregnancy Weight lbs Domestic Partner Domestic Partner Phone Father Name Rags Laborer Status 07/29/19 21 1 CLOSED Fetus Data First Name Last Name Admitted to NICU Weight (g) Sex Living Outcome Pediatric Complications Fetus ID Race Codes Race Delivery Type 1133.98 M Full Term [id number] Vaginal Delivery Dipesh Calculation Initial Dipesh Date Initial Exam Date Initial Exam Provider Initial Ultrasound Date Last Menstrual Period Date Ultra Sound Weeks Gestation 0 Eighteen To Twenty Week Dipesh Update Ultra Sound Date Fundal Height At Umbil Quickening Date Ultra Sound Latest Weeks Gestation Final Dipesh Confirmed By Final Dipesh Confirmed Date Final Dipesh Date Ultra Sound Latest Days Gestation 0 0 Menstrual History Last Menstrual Date Menses Monthly On Bcp Conception Prior Menses Frequency Hcg Plus Date Menarche Onset Age Delivery Information Delivery Date Delivery Type Labor Anesthesia Weeks Gestation Incision Type Labor Labor Length Hrs Delivered By Post Complications Tubal Sterilization Discharge Date Comments 6 25.3 Discharge Information Feeding Method Contraceptive Method Maternal HG B and HCT Levels
[2025-01-01] MEDS: LACTATED RINGERS 1,000 ML 30 ML IV CONT (08:34)
[2025-01-01] MEDS: TRANEXAMIC ACID 1,000 MG/10 ML AMPUL 1000 MG IV PUSH (08:35)
--- NOTE | 2025-01-01 09:04 | WPDANESEPPF ---
Anes - Initial Pre Proc Eval Procedure: Operation Date: 01/01/25 10:00 Proposed Procedures p Bilateral Breast Implant Exchange - Wes Rogers MD Date/Time: 01/01/25 09:04 Surgeon: Wes Rogers MD Pre Op Diagnosis: History of Breast Augmentation Patient Data Age: 44 Gender: F Height: 1.57 m Weight: 56 kg Last Vital Signs Temp 98.5 F 01/01/25 08:21 Pulse 112 H 01/01/25 08:21 Resp 16 01/01/25 08:21 BP 134/80 01/01/25 08:21 Pulse Ox 100 01/01/25 08:21 O2 Del Method Room Air 01/01/25 08:21 Allergies Allergy/AdvReac Type Severity Reaction Status Date / Time shellfish derived Allergy Intermediate Difficulty Verified 01/01/25 08:12 Breathing azithromycin Allergy Unknown Dizziness Verified 01/01/25 08:12 Penicillins Allergy Unknown Unknown Verified 01/01/25 08:12 Home Medications ?Medication ?Instructions ?Recorded ?Confirmed ?Type ergocalciferol (vitamin D2) 1,250 50,000 unit PO 12/23/24 History mcg (50,000 unit) capsule hydroxyzine HCl 25 mg tablet 25 mg PO DAILY PRN allergies, 12/23/24 01/01/25 History anxiety pantoprazole 20 mg tablet,delayed 20 mg PO DAILY 12/23/24 01/01/25 History release scopolamine base 1 mg over 3 days 01/01/25 History transdermal patch Patient hx anesthesia problems: none Family hx anesthesia problems: none Results Review: All pre-operative results and documents have been reviewed as part of the pre-operative evaluation. [facility] Past Medical History Medical History (Updated 03/09/21 @ 00:00 by George Vang) Polycystic ovarian syndrome Kidney stones Anxiety Surgical History Surgical History (Updated 03/05/21 @ 06:15 by Frankie Suarez MD) No pertinent past surgical history Social History Social History (Updated 03/05/21 @ 06:15 by Frankie Suarez MD) Smoking status: Never smoker Substance use: never Substance use type: does not use Living arrangements: with family Spiritual care concerns: No Anes - Eval Final PreProcedure Day of Procedure 01/01/25 09:04 Heart: regular rate and rhythm Lungs: clear to auscultation Airway: Mallampati scale class II Neurological: alert and oriented Last oral intake: >/= 8 hours ASA classification: II Anesthetic plan: proceed Anesthesia type and monitoring: general Results Review: All pre-operative results and documents have been reviewed as part of the pre-operative evaluation. Informed Consent: The patient's anesthetic plan and its attendant risks and benefits were discussed with the patient/family/POA. Questions were solicited and answers provided to the satisfaction of the patient/family/POA.
--- NOTE | 2025-01-01 09:30 | WPDHPUPDATE1 ---
History and Physical Update Update Date/Time: 01/01/25 09:30 History and Physical has been reviewed, including an updated exam of the patient. There are NO changes in the patient's condition. Risks, benefits, and alternatives have been discussed and questions answered. Patient agrees to proceed with procedure.
--- NOTE | 2025-01-01 09:46 | W.PM.PROC2 ---
Procedure Note - Detailed Date of Procedure 01/01/25 Pre-op Diagnosis History of Breast Augmentation Post-op Diagnosis Same Procedure Performed Bilateral breast implant exchange Surgeon Wes Rogers MD Anesthesia General Findings Previous implants: Right: Betty 68MP-210 cc smooth Left: Betty 68MP-300 cc smooth Capsules: Right thickened - excised significant portion sent to pathology. Left soft / no worrisome features. New implants: Right: REF# [id number] - 390cc filled to 420cc Left: REF# [id number] - 465cc filled to 505cc Description of Procedure Preoperatively the risks, benefits, alternatives were discussed in extensive detail. I wanted to be very realistic about the risks involved as well as expectations. I was clear about how we could actually make her worse. * She states her right breast was always larger and sat lower, her partner states he felt there was good size match; however, the right breast was lower. She did have a post-operative hematoma on the right after her original surgery. Today her right IMF is elevated with a slightly more degree of right breast glandular ptosis. I outlined that her implant position would be similiar with changes in volume and dimensions (outlined). Explained we gina not be lifting the breast or significantly improving symmetry and there will always be asymmetry (and could be more asymmetry). Outlined again the option of mastopexy to improve some of her concerns (at her expense) and she again declines and wished to proceed with implant exchange. Answered all questions to satisfaction. Voiced a clear understanding. Consent obtained. She was taken the operating room placed supine on the operating room table. Anesthesia provided by anesthesiology and prepped and draped in a standard sterile fashion. Surgical time-out was taken. 1% lidocaine and 0.25% Marcaine with epinephrine was used to provide a field block. Tegaderm nipple urias were placed. Fifteen blade used to excise the previous IMF scars. Dissection was continued down until the capsules were identified (findings as above). Implants removed. I then copiously irrigated with 3 L of saline solution on TUR tubing. Verified strict hemostasis. I then irrigated with Betadine (she pre-op stated she has never had problems with Iodine or Betadine) containing solution. Using a no-touch technique and a Stafford funnel the implant was introduced into the pocket. This was closed with 2-0 PDS followed by 3-0 Monocryl and a running subcuticular 4-0 Monocryl followed by tissue glue. Dressings were placed. She was woken taken to the PACU without difficulty. All instrument sponge counts were correct at the end of the case. Estimated Blood Loss 20 Drains No Packing No Pathology Yes (Right capsule) Complications No immediate complications Condition Stable Disposition PACU
--- NOTE | 2025-01-01 09:47 | SUR.PREOP ---
FEMALE STAFF IN ROOM WHILE DR KNOX MARKED PT. PT'S SPOUSE ALSO IN ROOM.
[2025-01-01] MEDS: ceFAZolin SODIUM 2 GM/20 ML SW SYRINGE IV PUSH (10:00)
[2025-01-01] MEDS: LIDO 1%/EPINEPHRINE 1:100,000 20 ML VIAL 30 ML INFILTRATE (10:50)
[2025-01-01] MEDS: ONDANSETRON INJ 4 MG/2 ML VIAL IV PUSH (12:03)
--- NOTE | 2025-01-01 13:11 | SUR.PHASEII ---
PT REFUSING PAIN MED AT THIS TIME
== END 2025-01-01 13:15 | disposition home or self-care (01) ==
PROVIDERS: Visit Provider Surgery Plastic and Reconstructive Surgery
PROC: (CPT 19342; principal; 2025-01-01 10:00)
DX: Z41.1 Encounter for cosmetic surgery (principal)
CPT/HCPCS: 19325; 19371